=== PATIENT | female | born 1950 | race Caucasian/White ===

== ENCOUNTER 2018-02-11 11:40 | Day surgery (SDC) | payer MEDICARE ==
[2018-02-11] MEDS ORDERED: NS 1,000 ML IV (12:15)
[2018-02-11] MEDS ORDERED: LIDOCAINE 2% INJ 100 MG/5 ML SDV (FOR ANES.) As Ordered (13:25)
[2018-02-11] MEDS ORDERED: PROPOFOL 200 MG/20 ML VIAL As Ordered (13:25)
== END 2018-02-11 13:55 | disposition home or self-care (01) ==
LOC: M OPP 11:40
DX: Z12.11 Encounter for screening for malignant neoplasm of colon (principal); K64.0 First degree hemorrhoids; D12.2 Benign neoplasm of ascending colon; K57.30 Diverticulosis of large intestine without perforation or abscess without bleeding; Z78.0 Asymptomatic menopausal state; Z91.89 Other specified personal risk factors, not elsewhere classified; Z88.0 Allergy status to penicillin; Z98.890 Other specified postprocedural states
CPT/HCPCS: 45380

== ENCOUNTER 2020-11-19 13:07 | Emergency (ER) | payer BC, MEDICARE ==
[~2020-11-19] VITALS: Ht 154.9 cm; Wt 69.7 kg
[~2020-11-19 13:07] MED LIST: FIORICET OR; FLEXERIL PO; IBUP-1114 PO; MULTIVIT PO; OYST500T OR; TRAM50TA2 OR; aleve PO; ocuvite PO
--- OUTSIDE RECORDS SUMMARY | 2020-11-19 13:15 | CCD | Continuity of Care Document ---
Author Author Belia RUVALCABA MD Organization Unknown Address [address] [place] [address], [facility] [address] [place] [address] Phone [phone] Care Team Providers Care Workers' Compensation Claims Supervisor Name Role Phone Tay Lane MD AUTM [phone] Problems Description No Information Available Social History Type Date Description Comments Sex Unknown ETOH Use Occasionally consumes alcohol Tobacco Use Start: Unknown Denies Smoking Allergies, Adverse Reactions, Alerts Active Allergies Reaction Severity Comments Date Penicillin 06/11/2018 Medications Active Medications SIG Qnty Indications Ordering Provide r Date Tylenol With Codeine #3 300-30mg T ablets 1-2 tabs every 4-6 hours as needed pain after surgery(Please DO Not Fill Until 11/15/2020) 30tabs D. Niraj Ruvalcaba MD 021 History Medications No Active Medications Unknown - 11/15/2020 Immunizations Description No Information Available Vital Signs Date Vital Result Comment 10/19/2020 11:37am Body Temperature 96.4 F Height 60 inches 5'0" Weight 148.00 lb BMI (Body Mass Index) 28.9 kg/m2 06/11/2018 9:46am Body Temperature 98.5 F Height 61 inches 5'1" Weight 138.00 lb BMI (Body Mass Index) 26.1 kg/m2 Results Test Acquired Date Facility Test Result H/L Range Note Laboratory test finding 10/31/2020 In House Covid Rapid Testing NEGATIVE Procedures Date Code Description Status 11/15/2020 18793 Arthroplasty Interposition IC/CM JTS Completed 11/15/2020 59218 Transplant Tendon Forearm/Wrist Completed 10/19/2020 65042 X-Ray Finger(S) Two Views Comple Moment.Us Description No Information Available Encounters Type Date Location Provider Dx Diagnosis Office Visit 10/19/2020 10:30a [place] Sheryl Ruvalcaba MD M1 8.11 Unil primary osteoarth of first carpometacarp joint, r hand Assessments Date Code Description Provider 11/10/2020 Z20.828 Contact with and (renee spected) exposure to other viral communicable diseases Lab 11/10/2020 Z01.818 Encounter for other preprocedura l examination Lab 11/09/2020 Z20.828 Contact with and (renee spected) exposure to other viral communicable diseases Sheryl Ruvalcaba MD 11/09/2020 Z20.828 Contact with and (renee spected) exposure to other viral communicable diseases Lab 11/09/2020 Z01.818 Encounter for other preprocedura l examination Sheryl Ruvalcaba MD 11/09/2020 Z01.818 Encounter for other preprocedura l examination Lab 10/31/2020 Z20.828 Contact w and exposure to oth vi ral communicable diseases Sheryl Ruvalcaba MD 10/19/2020 M18.11 Unilateral primary osteoarthriti s of first carpometacarpal j Sheryl Ruvalcaba MD Plan of Treatment Future Appointment(s):* 11/23/2020 1:15 pm - Liza Bullock PA-C at [place] 10/19/2020 - Sheryl Ruvalcaba MD* M18.11 Unilateral primary osteoarthritis of first carpometacarpal j* Follow up:* post op * All * New Medication:* No Active Medications - Functional Status Description No Information Available Mental Status Description No Information Available Referrals Refer to Reason for Referral Status Appt Date Charly Ruvalcaba MD SURGERY PER [employer] WEB NO AU TH REQUIRED FOR RT THUMB SURGERY (40552 AND 49674) TO SURGERY NT Created [facility] [facility], [address] [place] [address] [phone]
--- OUTSIDE RECORDS SUMMARY | 2020-11-19 13:15 | CCD | Continuity of Care Document ---
Author Author Belia RUVALCABA MD Organization Unknown Address [address] [place] [address], [facility] [address] [place] [address] Phone [phone] Care Team Providers Care Filter Worker Name Role Phone Tay Lane MD AUTM [phone] Problems Description No Information Available Social History [...] NEGATIVE Procedures Date Code Description Status 11/15/2020 92293 Arthroplasty Interposition IC/CM JTS Completed 11/15/2020 88195 Transplant Tendon Forearm/Wrist Completed 10/19/2020 42557 X-Ray Finger(S) Two Views Comple [employer] Description No Information Available Encounters Type Date Location Provider Dx Diagnosis Office Visit 10/19/2020 10:30a [place] Sheryl Ruvalcaba MD M1 8.11 Unil primary osteoarth of first carpometacarp joint, r hand Assessments Date Code Description Provider 11/15/2020 M18.11 Unilateral primary o steoarthritis of first carpometacarpal joint, right hand Sheryl Ruvalcaba MD 11/10/2020 Z20.828 Contact with and (renee spected) [...] 1:15 pm - Liza Bullock PA-C at [place] 10/19/2020 - Sheryl Ruvalcaba MD* M18.11 Unilateral primary osteoarthritis of first carpometacarpal j* Follow up:* post op * All * New Medication:* No Active Medications - Functional Status Description No Information Available Mental Status Description No Information Available Referrals Refer to Reason for Referral Status Appt Charly Ruvalcaba MD SURGERY PER [employer] WEB NO AU TH REQUIRED FOR RT THUMB SURGERY (74289 AND 35083) TO SURGERY NT Created [address] [facility], [address] [place] [address] [phone]
--- OUTSIDE RECORDS SUMMARY | 2020-11-19 13:15 | CCD | Continuity of Care Document ---
Author Author Belia RUVALCABA MD Organization Unknown Address [address] [place] [address], [facility] [address] [place] [address] Phone [phone] Care Team Providers Care Account Executive Agribusiness Name Role Phone Tay Lane MD AUTM [phone] Problems Description No Information Available Social History [...] surgery(Please DO Not Fill Until 11/15/2020) 30tabs Sheryl Ruvalcaba MD 021 History Medications No Active [...] Testing NEGATIVE Procedures Date Code Description Status 10/19/2020 61168 X-Ray Finger(S) Two Views Comple [employer] Description No Information Available Encounters Type Date Location Provider Dx Diagnosis Office Visit 10/19/2020 10:30a [place] Ruvalcaba MD M1 8.11 Unil primary osteoarth [...] 1:15 pm - Liza Bullock PA-C at [place] 10/19/2020 - Sheryl Ruvalcaba MD* M18.11 Unilateral primary osteoarthritis of first carpometacarpal j* Follow up:* post op * All * New Medication:* No Active Medications - Functional Status Description No Information Available Mental Status Description No Information Available Referrals Refer to Reason for Referral Status Appt Date Charly Ruvalcaba MD SURGERY PER [facility] NO AU TH REQUIRED FOR RT THUMB SURGERY (84849 AND 31533) TO SURGERY NT Created [address] [facility], [address] [place] [address] [phone]
--- OUTSIDE RECORDS SUMMARY | 2020-11-19 13:15 | CCD | Continuity of Care Document ---
Author Author Belia RUVALCABA MD Organization Unknown Address [address] [place] [address], [facility] [address] [place] [address] Phone [phone] Care Team Providers Care Lockstitch Tunnel Elastic Operator Name Role Phone Tay Lane MD AUTM [phone] Problems Description No Information Available Social History Type Date Description Comments Sex Unknown ETOH Use Occasionally consumes alcohol Tobacco Use Start: Unknown Denies Smoking Allergies, Adverse Reactions, Alerts Active Allergies Reaction Severity Comments Date Penicillin 06/11/2018 Medications Description No Active Medications Immunizations Description No Information Available Vital Signs [...] NEGATIVE Procedures Date Code Description Status 10/19/2020 85008 X-Ray Finger(S) Two Views Comple [employer] Description No Information Available Encounters Description No Information Available Assessments Date Code Description Provider 11/10/2020 Z20.828 [...] 1:15 pm - Liza Bullock PA-C at [place] * 11/15/2020 12:20 pm - Sheryl Ruvalcaba MD at Surgery [facility] 10/19/2020 - Sheryl Ruvalcaba MD* M18.11 Unilateral primary osteoarthritis of first carpometacarpal j* Follow up:* post op * All * New Medication:* No Active Medications - Functional Status Description No Information Available Mental Status Description No Information Available Referrals Refer to Reason for Referral Status Appt Date Charly Ruvalcaba MD SURGERY PER [employer] WEB NO AU TH REQUIRED FOR RT THUMB SURGERY (28639 AND 98942) TO SURGERY NT Created [facility] [facility], [address] [place] [address] [phone]
--- OUTSIDE RECORDS SUMMARY | 2020-11-19 13:15 | CCD | Continuity of Care Document ---
Author Author Belia Skinner Organization Unknown Address [address] [place] [address] [address] [place] [address] Phone [phone] Care Team Providers Care Breakfast And Room Attendant Name Role Phone Tay Lane MD AUTM [phone] Problems Description No Information Available Social History [...] NEGATIVE Procedures Date Code Description Status 10/19/2020 02580 X-Ray Finger(S) Two Views Comple [employer] Description No Information Available Encounters Description No Information Available Assessments Date Code Description Provider 10/31/2020 Z20.828 Contact w and exposure to oth vi ral communicable diseases Sheryl Ruvalcaba MD 10/19/2020 M18.11 Unilateral primary osteoarthriti s of first carpometacarpal j Sheryl Ruvalcaba MD Plan of Treatment Future Appointment(s):* 11/23/2020 1:15 pm - Liza Bullock PA-C at [place] * 11/15/2020 12:20 pm - Sehryl Ruvalcaba MD at Surgery [facility] 10/19/2020 - Sheryl Ruvalcaba MD* M18.11 Unilateral primary osteoarthritis of first carpometacarpal j* Follow up:* post op * All * New Medication:* No Active Medications - Functional Status Description No Information Available Mental Status Description No Information Available Referrals Refer to Reason for Referral Status Appt Date Charly Ruvalcaba MD SURGERY PER [place] WEB NO AU TH REQUIRED FOR RT THUMB SURGERY (10397 AND 51830) TO SURGERY NT Created [facility], [address] [place] [address] [phone]
--- OUTSIDE RECORDS SUMMARY | 2020-11-19 13:15 | CCD | Continuity of Care Document ---
Author Author Belia Skinner Organization Unknown Address [address] [place] [address] [address] [place] [address] Phone [phone] Care Team Providers Care Manager Cash Name Role Phone Tay Lane MD AUT [phone] Problems Description No Information Available Social History [...] NEGATIVE Procedures Date Code Description Status 10/19/2020 31095 X-Ray Finger(S) Two Views Comple [employer] Description No Information Available Encounters Description [...] 1:15 pm - Liza Bullock PA-C at [place] * 11/15/2020 12:20 pm - Sheryl Ruvalcaba MD at Surgery [facility] 10/19/2020 - Sheryl Ruvalcaba MD* M18.11 Unilateral primary osteoarthritis of first carpometacarpal j* Follow up:* post op * All * New Medication:* No Active Medications - Functional Status Description No Information Available Mental Status Description No Information Available Referrals Refer to Reason for Referral Status Appt Date Charly Ruvalcaba MD SURGERY PER [facility] WEB NO AU TH REQUIRED FOR RT THUMB SURGERY (49327 AND 86740) TO SURGERY NT Created [address] [facility], [address] [place] [address] [phone]
--- OUTSIDE RECORDS SUMMARY | 2020-11-19 13:16 | CCD ---
Author Author [facility] Organization [facility] Address Unknown Phone Unavailable Care Team Providers Care Biztalk Software Developer Name Role Phone Eunice Pineda Unavailable PROBLEMS Type Condition ICD9-CM Code [id number] Code Onset Dates Condition S tatus SNOMED Code Notes Problem Seborrheic psoriasis L40.8 Active 60935635 ALLERGIES Allergen (clinical drug ingredient) Drug/Non Drug Allergy do cumented on EMR Reaction Allergy Type Onset Date Status Penicillin (For Allergies Use Only) Hives Drug Allerg y Active ENCOUNTERS from 1950 to 2020-09-20 Encounter Location Date Provider Diagnosis [facility] [address] [place] [address] Sep, Eunice Pineda Seborrheic psoriasis L40.8 IMMUNIZATIONS No Information SOCIAL HISTORY Sex Assigned At : Social History Observation Description Sex Assigned At Unknown REASON FOR REFERRAL No Information VITAL SIGNS No information MEDICATIONS Medication SIG (Take, Route, Frequency, Duration) Notes Start Da te End Date Status Estrace 0.1 MG/GM 0.5 gm intravaginally 1-2xwk prn Not-Taking CUSTOM DO NOT USE Tramadol 50 mg 1 tab(s) p.o. as needed for pain Not-Taking Tacrolimus 0.1 % 1 application Externally Twi ce a day to EYELID rash as instructed for 30 days Sep, Active Calcium 600 + D 600-400 MG-UNIT 1 tablet Orally bid Oct Active Alendronate 70 70mg 1 tab(s) orally once weekly for 30 day(s) Nov, Not-Taking Aleve 220 MG 1 tablet p.o. as needed Not-Taking PROCEDURES No Information RESULTS No Results REASON FOR VISIT NEEDS SCRIPT MEDICAL (GENERAL) HISTORY Type Description Date Medical History osteoporosis Medical History hx spinal injury/chronic back pain Medical History environmental allergies Medical History vaginal atrophy Medical History osteoarthritis Surgical History back surgery Surgical History tubal ligation Surgical History knee surgery jimmie Surgical History deviated septum repair Goals Section No Information Health Concerns No Information MEDICAL EQUIPMENT No Information MENTAL STATUS No Information FUNCTIONAL STATUS No Information ASSESSMENTS Encounter Date Diagnosis Assessment Notes Treatment Notes Treatm ent Clinical Notes Sep, Seborrheic psoriasis (ICD-10 - L40.8) PLAN OF TREATMENT Medication Medication Name Sig Start Date Stop Date Tacrolimus 0.1 % 1 application Externally Twi ce a day to EYELID rash as instructed for 30 days Sep, Next Appt Details Provider Name:Eunice Pineda, 11:00:00 AM, [address] [facility] [place], [address] [facility], [place], [address], Insurance Providers Payer Name Payer Address Payer Phone Insured Name Patient Relati onship to Insured Coverage Start Date Coverage End Date MEDICARE COMPLETE [employer] [address] [address] [facility] [phone] SANJAY KAY self
--- OUTSIDE RECORDS SUMMARY | 2020-11-19 13:16 | CCD ---
Author Author [facility] Organization [facility] Address Unknown Phone Unavailable Care Team Providers Care Fireworks Assembly Supervisor Name Role Phone Eunice Pineda Unavailable PROBLEMS Type Condition ICD9-CM Code [id number] Code Onset Dates Condition S tatus SNOMED Code Notes Problem Seborrheic psoriasis L40.8 Active [id number] ALLERGIES Allergen (clinical drug ingredient) Drug/Non Drug Allergy do cumented on EMR Reaction Allergy Type Onset Date Status Penicillin (For Allergies Use Only) Hives Drug Allerg y Active ENCOUNTERS from 1950 to 2020-10-04 Encounter Location Date Provider Diagnosis [facility] Derm[facility]ology [address] [place] [address] Sep, Eunice Pineda IMMUNIZATIONS No Information SOCIAL HISTORY Sex Assigned [...] Information RESULTS No Results REASON FOR VISIT Reaction to RX MEDICAL (GENERAL) HISTORY Type Description Date Medical [...] No Information FUNCTIONAL STATUS No Information ASSESSMENTS No Information PLAN OF TREATMENT Medication Medication Name Sig Start Date Stop Date Tacrolimus 0.1 % 1 application Externally Twi ce a day to EYELID rash as instructed for 30 days Sep, Next Appt Details Provider Name:Eunice Pineda, 11:00:00 AM, [address] [place] [address], [address] [facility], [place], [address], Insurance Providers Payer Name Payer Address Payer Phone Insured Name Patient Relati onship to Insured Coverage Start Date Coverage End Date MEDICARE COMPLETE [employer] [address] [address] [facility] [id number] SANJAY KAY self
--- OUTSIDE RECORDS SUMMARY | 2020-11-19 13:16 | CCD ---
Author Author [facility] Organization [facility] Address Unknown Phone Unavailable Care Team Providers Care Cdl B Driver Name Role Phone Eunice Pineda Unavailable PROBLEMS Type Condition ICD9-CM Code [id number] Code Onset Dates Condition S tatus SNOMED Code Notes Problem Seborrheic psoriasis L40.8 Active 22263131 ALLERGIES Allergen (clinical drug ingredient) Drug/Non Drug Allergy do cumented on EMR Reaction Allergy Type Onset Date Status Penicillin (For Allergies Use Only) Hives Drug Allerg y Active ENCOUNTERS from 1950 to 2020-09-22 Encounter Location Date Provider Diagnosis [facility] D[facility] [address] [place] [address] Sep, Eunice Miriam Seborrheic psoriasis L40.8 a nd Seborrheic keratoses L82.1 IMMUNIZATIONS No Information SOCIAL HISTORY Sex Assigned At : Social History Observation Description Sex Assigned At Unknown REASON FOR REFERRAL No Information VITAL SIGNS Weight 150 lbs Sep, Height 61 in Sep, BMI 28.34 kg/m2 Sep, Blood pressure systolic 132 mm Hg Sep, Blood pressure diastolic 86 mm Hg Sep, MEDICATIONS Medication SIG (Take, Route, Frequency, Duration) [...] Information RESULTS No Results REASON FOR VISIT Scaly spot above right eye MEDICAL (GENERAL) HISTORY Type Description Date Medical [...] Notes Sep, Seborrheic psoriasis (ICD-10 - L40.8) Sep, Seborrheic keratoses (ICD-10 - L82.1) Benign Lesion Counseling. The patient was extensively counseled regarding the benign nature of the lesion but that skin cancer may arise in this area just as it would anywhere on their skin. For that reason, return to clinic was recommended for any acute changes, itching, burning, or bleeding. The patient was educated that benign lesions are not a covered insurance benefit and treatment would be elective and cosmetic. They expressed understanding. PLAN OF TREATMENT Medication Medication Name Sig Start Date Stop Date Tacrolimus 0.1 % 1 application Externally Twi ce a day to EYELID rash as instructed for 30 days Sep, Treatment Notes Assessment Notes Clinical Notes Seborrheic keratoses Benign Lesion Couns eling. The patient was extensively counseled regarding the benign nature of the lesion but that skin cancer may arise in this area just as it would anywhere on their skin. For that reason, return to clinic was recommended for any acute changes, itching, burning, or bleeding. The patient was educated that benign lesions are not a covered insurance benefit and treatment would be elective and cosmetic. They expressed understanding. Next Appt Details 3-4 weeks Reason:sebopsoriasis F/U Provider Name:Eunice Pineda, 11:00:00 AM, [address] [facility], [address] [place] [address], [place], [address], Follow Up:3-4 weekssebopsoriasis F/U Insurance Providers Payer Name Payer Address Payer Phone Insured Name Patient Relati onship to Insured Coverage Start Date Coverage End Date MEDICARE COMPLETE [facility] [address] [address] [facility] [phone] SANJAY KAY self
--- OUTSIDE RECORDS SUMMARY | 2020-11-19 13:16 | CCD ---
Author Author [facility] Organization [facility] Address Unknown Phone Unavailable Care Team Providers Care Order Taker Name Role Phone Fred Lane MD Unavailable Unavailable Fred Lane MD Unavailable Unavailable Fred Lane MD Unavailable Unavailable Fred Lane MD Unavailable Unavailable Fred Lane MD Unavailable Unavailable Fred Lane MD Unavailable Unavailable Fred Lane MD Unavailable Unavailable Fred Lane MD Unavailable Unavailable Fred Lane MD Unavailable Unavailable Fred Lane MD Unavailable Unavailable Fred Lane MD Unavailable Unavailable Fred Lane MD Unavailable Unavailable Fred Lane MD Unavailable Unavailable Fred Lane MD Unavailable Unavailable Fred Lane MD Unavailable Unavailable Fred Lane MD Unavailable Unavailable Fred Lane MD Unavailable Unavailable Fred Lane MD Unavailable Unavailable Fred Lane MD Unavailable Unavailable Fred Lane MD Unavailable Unavailable Fred Lane MD Unavailable Unavailable Fred Lane MD Unavailable Unavailable Fred Lane MD Unavailable Unavailable Fred Lane MD Unavailable Unavailable Fred Lane MD Unavailable Unavailable Fred Lane MD Unavailable Unavailable Fred Lane MD Unavailable Unavailable Fred Lane MD Unavailable Unavailable Fred Lane MD Unavailable Unavailable Fred Lane MD Unavailable Unavailable Fred Lane MD Unavailable Unavailable Fred Lane MD Unavailable Unavailable ArianaFred MD Unavailable Unavailable WilsonFred MD Unavailable Unavailable WilsonFred MD Unavailable Unavailable ArianaFred MD Unavailable Unavailable ArianaFred MD Unavailable Unavailable WilsonFred MD Unavailable Unavailable WilsonFred MD Unavailable Unavailable ArianaFred MD Unavailable Unavailable ArianaFred MD Unavailable Unavailable ArianaFred MD Unavailable Unavailable WilsonFred MD Unavailable Unavailable WilsonFred MD Unavailable Unavailable ArianaFred MD Unavailable Unavailable WilsonFred MD Unavailable Unavailable ArianaFred MD Unavailable Unavailable WilsonFred MD Unavailable Unavailable ArianaFred MD Unavailable Unavailable WilsonFred MD Unavailable Unavailable ArianaFred MD Unavailable Unavailable ArianaFred MD Unavailable Unavailable ArianaFred MD Unavailable Unavailable WilsonFred MD Unavailable Unavailable ArianaFred MD Unavailable Unavailable ArianaFred MD Unavailable Unavailable WilsonFred MD Unavailable Unavailable ArianaFred MD Unavailable Unavailable ArianaFred MD Unavailable Unavailable ArianaFred MD Unavailable Unavailable WilsonFred MD Unavailable Unavailable WilsonFred MD Unavailable Unavailable WilsonFred MD Unavailable Unavailable ArianaFred MD Unavailable Unavailable ArianaFred MD Unavailable Unavailable WilsonFred MD Unavailable Unavailable ArianaFred carl MD Unavailable Unavailable WilsonFred carl MD Unavailable Unavailable WilsonFred carl MD Unavailable Unavailable ArianaFred carl MD Unavailable Unavailable ArianaFred carl MD Unavailable Unavailable WilsonFred MD Unavailable Unavailable ArianaFred MD Unavailable Unavailable WilsonFred carl MD Unavailable Unavailable ArianaFred carl MD Unavailable Unavailable WilsonFred carl MD Unavailable Unavailable WilsonFred MD Unavailable Unavailable WilsonFred MD Unavailable Unavailable ArianaFred MD Unavailable Unavailable WilsonFred MD Unavailable Unavailable ArianaFred MD Unavailable Unavailable WilsonFred MD Unavailable Unavailable WilsonFred carl MD Unavailable Unavailable ArianaFred MD Unavailable Unavailable WilsonFred MD Unavailable Unavailable WilsonFred MD Unavailable Unavailable Charly Ruvalcaba MD Unavailable Unavailable Vaneenenaam, Charly Healy MD Unavailable Unavailable Vaneenenaam, Charly Healy MD Unavailable Unavailable Vaneenenaam, Charly Healy MD Unavailable Unavailable Vaneenenaam, Charly Healy MD Unavailable Unavailable Vaneenenaam, Charly Healy MD Unavailable Unavailable Vaneenenaam, Charly Healy MD Unavailable Unavailable Vaneenenaam, Charly Healy MD Unavailable Unavailable Vaneenenaam, Charly Healy MD Unavailable Unavailable Vaneenenaam, Charly Healy MD Unavailable Unavailable Vaneenenaam, Charly Healy MD Unavailable Unavailable Vaneenenaam, Charly Healy MD Unavailable Unavailable Vaneenenaam, Charly Healy MD Unavailable Unavailable Vaneenenaam, Charly Healy MD Unavailable Unavailable Vaneenenaam, Charly Healy MD Unavailable Unavailable Vaneenenaam, Charly Healy MD Unavailable Unavailable Vaneenenaam, Charly Healy MD Unavailable Unavailable Vaneenenaam, Charly Healy MD Unavailable Unavailable Vaneenenaam, Charly Healy MD Unavailable Unavailable Vaneenenaam, Charly Healy MD Unavailable Unavailable Vaneenenaam, Charly Healy MD Unavailable Unavailable Vaneenenaam, Charly Healy MD Unavailable Unavailable Vaneenenaam, Charly Healy MD Unavailable Unavailable Vaneenenaam, Charly Healy MD Unavailable Unavailable Vaneenenaam, Charly Healy MD Unavailable Unavailable Vaneenenaam, Charly Healy MD Unavailable Unavailable Vaneenenaam, Charly Healy MD Unavailable Unavailable Vaneenenaam, Charly Healy MD Unavailable Unavailable Vaneenenaam, Charly Healy MD Unavailable Unavailable Vaneenenaam, Charly Healy MD Unavailable Unavailable Vaneenenaam, Charly Healy MD Unavailable Unavailable Vaneenenaam, Charly Healy MD Unavailable Unavailable Vaneenenaam, Charly Healy MD Unavailable Unavailable Vaneenenaam, Charly Healy MD Unavailable Unavailable Vaneenenaam, Charly Healy MD Unavailable Unavailable Vaneenenaam, Charly Healy MD Unavailable Unavailable Vaneenenaam, Charly Healy MD Unavailable Unavailable Vaneenenaam, Charly Healy MD Unavailable Unavailable Vaneenenaam, Charly Healy MD Unavailable Unavailable Vaneenenaam, Charly Healy MD Unavailable Unavailable Vaneenenaam, Charly Healy MD Unavailable Unavailable Vaneenenaam, Charly Healy MD Unavailable Unavailable Re-disclosure Warning The records that you are about to access may contain information from federally-assisted alcohol or drug abuse programs. If such information is present, then the following federally mandated warning applies: This information has been disclosed to you from records protected by federal confidentiality rules (42 CFR part 2). The federal rules prohibit you from making any further disclosure of this information unless further disclosure is expressly permitted by the written consent of the person to whom it pertains or as otherwise permitted by 42 CFR part 2. A general authorization for the release of medical or other information is NOT sufficient for this purpose. The Federal rules restrict any use of the information to criminally investigate or prosecute any alcohol or drug abuse patient.The records that you are about to access may contain highly sensitive health information, the redisclosure of which is protected by Article 27-F of the [facility] Public Health law. If you continue you may have access to information: Regarding HIV / AIDS; Provided by facilities licensed or operated by the [facility] Office of Mental Health; or Provided by the [facility] Office for People With Developmental Disabilities. If such information is present, then the following [facility] mandated warning applies: This information has been disclosed to you from confidential records which are protected by state law. State law prohibits you from making any further disclosure of this information without the specific written consent of the person to whom it pertains, or as otherwise permitted by law. Any unauthorized further disclosure in violation of state law may result in a fine or group home sentence or both. A general authorization for the release of medical or other information is NOT sufficient authorization for further disc losure. Family History Family Member Name Family Member Gender Family Member Status Date o f Status Description Data Source(s) Unknown Male Problem [facility] ([facility]) Unknown Male Problem MEDENT ([facility]) Unknown Female Problem MEDENT ([facility]) Encounters Encounter Providers Location Date Indications Data Source(s ) Office Visit Attender: Tay Feng 0 11/02/2020 08:40:00 AM EST MEDENT ([facility] ) Office Visit Attender: Charly Ruvalcaba MD Physical Therap y 10/19/2020 09:30:00 AM EST MED[facility] ([facility]) Outpatient [address] [facility] [place] [address] 10/16/2020 12:00:00 AM EST eCW1 ([facility]) Unknown [address] [facility] [place] [address] 10/04/2020 12:00:00 AM EST eCW1 ([facility]) Unknown [address] [facility] [place] [address] 09/20/2020 12:00:00 AM EST eCW1 ([facility]) Unknown [address] [facility] [place] [address] 09/19/2020 12:00:00 AM EST eCW1 ([facility]) Outpatient [address] [facility] [place] [address] 09/18/2020 12:00:00 AM EST eCW1 ([facility]) Outpatient Attender: Tay Feng 1 11/13/2019 01:00:00 PM EST MEDENT ([facility] ) Immunizations Vaccine Date Status Description Data Source(s) COVID-19 VACCINE, MRNA-1273, LNP-S (MODERNA)/PF 11/10/2020 1 2:00:00 AM EST completed [facility] Shingrix Zoster Vaccine (HZV), Recombinant, Subunit, A djuvanted 09/16/2020 07:38:00 AM EST completed [facility] ([place] [facility]) VARICELLA-ZOSTER VIRUS GLYCOPROTEIN E,REC/AS01B ADJUVA NT/PF 09/16/2020 12:00:00 AM EST completed [facility] This CVX code allows reporting of a vacc ination when formulation is unknown (for example, when recording a Influenza vaccination when noted on a vaccination card) 07/06/2020 10:18:00 AM EDT completed MEDEN T ([facility]) INFLUENZA VACCINE QUADRIVALENT 2019- (65 YR UP)/MF59 C.1/PF 07/06/2020 12:00:00 AM EDT completed [facility] Shingrix Zoster Vaccine (HZV), Recombinant, Subunit, A djuvanted 06/23/2020 03:58:00 PM EDT completed [facility] ([place] [facility]) VARICELLA-ZOSTER VIRUS GLYCOPROTEIN E,REC/AS01B ADJUVA NT/PF 06/23/2020 12:00:00 AM EDT completed [facility] Medications Medication Brand Name Start Date Product Form Dose Route Admi nistrative Instructions Pharmacy Instructions Status Indications Reaction Description Data Source(s) Acetaminophen 300 MG / Codeine Phosphate 30 MG Oral Tablet [Tylenol with Codeine] Tylenol With Codeine #3 11/15/2020 12:00:00 AM EST active [facility] ([facility]) 300-30 mg 11/14/2020 12:00:00 AM EST tablet 30 TAKE ONE TO TWO TABLETS BY MOUTH EVERY 4 TO 6 HOURS NEEDED FOR PAIN AFTER SURGERY MAXIMUM DAILY DOSE = 8 TABLETS TAKE ONE TO TWO TABLETS BY MOUTH EVERY 4 TO 6 HOURS NEEDED FOR PAIN AFTER SURGERY MAXIMUM DAILY DOSE = 8 TABLETS SOLD: 11/15/2020 [facility] No Active Medications 10/19/2020 12:00:00 AM EST completed [facility] ([facility]) 0.05 % 10/17/2020 12:00:00 AM EST ointment 15 APPLY TWICE A DAY FOR UP TO 1 WEEK ONLY NEEDED FOR EYEBROW RASH APPLY TWICE A DAY FOR UP TO 1 WEEK ONLY NEEDED FOR EYEBROW RASH SOLD: 10/17/2020 [facility] alclometasone dipropionate 0.0005 MG/MG Topical Ointment Alclometasone Dipropionate 0.05 % Alclometasone Dipropionate 0.05 % 10/16/2020 12:00:00 AM EST 1.0 {application} active Alclom etasone Dipropionate 0.05 % [facility] 0.1 % 09/21/2020 12:00:00 AM EST ointment 30 APPLY 1 APPLICATION TWICE A DAY TO EYELID RASH INSTRUCTED APPLY 1 APPLICATION TWICE A DAY TO EYELI D RASH INSTRUCTED SOLD: 09/21/2020 [facility] Tacrolimus 0.001 MG/MG Topical Ointment Tacrolimus 0.1 % Tac rolimus 0.1 % 09/18/2020 12:00:00 AM EST 1.0 {application} act greta Tacrolimus 0.1 % [facility]CW[facility] Tacrolimus 0.001 MG/MG Topical Ointment Tacrolimus 0.1 % Tac rolimus 0.1 % 09/18/2020 12:00:00 AM EST 1.0 {application} act greta Tacrolimus 0.1 % [facility]CW1 [facility]) Tacrolimus 0.001 MG/MG Topical Ointment Tacrolimus 0.1 % Tac rolimus 0.1 % 09/18/2020 12:00:00 AM EST 1.0 {application} act greta Tacrolimus 0.1 % [facility]CW1 [facility]) Tacrolimus 0.001 MG/MG Topical Ointment Tacrolimus 0.1 % Tac rolimus 0.1 % 09/18/2020 12:00:00 AM EST 1.0 {application} act greta Tacrolimus 0.1 % [facility]CW[facility] 10 mg 09/09/2019 12:00:00 AM EST tablet 60 TAKE ONE TABLET BY MOUTH TWICE A DAY MAXIMUM DAILY DOSE = 2 TABLETS TAKE ONE TABLET BY MOUTH TWICE A DAY MAX IMUM DAILY DOSE = 2 TABLETS SOLD: 10/08/2019 [facility] Insurance Providers Payer name Policy type / Coverage type Policy ID Covered green party ID Covered green party's relationship to [place] Policy [place] Plan Information MEDICARE COMPLETE [id number] SP [id number] [id number] SP [id number] [place] PPO 302/307 [id number] SP [id number] BS [place] Trad/MX Medigap Part B [id number] Self [id number] [facility] [id number] Self [id number] [place] Trad/MX Medigap Part B [id number] Self [id number] BS [place] Trad/[place] Medigap Part B [id number] Self [id number] [place] Trad/[place] Medigap Part B [id number] Family Depe ndent [id number] BS [place] Trad/MX Medigap Part B [id number] Self [id number] BS [place] Medigap Part B [id number] Self [id number] [place] [employer] Commercial [id number] Self [id number] BS [place] Trad/MX Medigap Part B [id number] Self [id number] [facility] [id number] Self [id number] [facility]/Medicare Commercial [id number] Self [id number] BS [place] Trad/MX Commercial [id number] Self [id number] MEDICARE COMPLETE-[facility] O [id number] S [id number] [facility] [id number] S [id number] BS [place] Trad/MX Commercial [id number] Self [id number] [facility] Medicare Kimberlee Commercial [id number] Self [id number] [facility] G [id number] Self [id number] [facility] MEDICARE -O/P [id number] 18 [id number] [facility] Medicare Kimberlee Commercial [id number] Self [id number] BS Jos Trad/MX Commercial 802 Self 802 BS [place] Trad/MX Commercial 802 Self 802 [place] Trad/MX Commercial 802 Self 802 BS [place] Trad/MX Commercial 802 Family Dependent 802 BS [place] Trad/MX Commercial 802 Self 802 [facility] Medicare Complete F [id number] SELF [id number] Medicare Complete [facility] F [id number] SELF [id number] [place] BCBS B [id number] S [id number] [place] PPO 302/307 [id number] SP [id number] BCBS [place] PPO 302/307 [id number] SP [id number] [employer] BCBS P [id number] S [id number] [id number] BCBS EMPIRE DANG DIV [id number] SP [id number] BC/BS OF [place] P [id number] S [id number] [id number] BLUE CROSS CNY 1 [id number] [id number] SELF PAY 5 UNAVAILABLE 1 UNAVAILA BLE [id number] Problems, Conditions, and Diagnoses Code Display Name Description Problem Type Effective Dates Data Source(s) L40.8 [id number] Seborrheic psoriasis Problem 09/18/2020 12:0 0:00 AM EST [facility] Surgeries/Procedures Procedure Description Date Indications Data Source(s) Transplant Tendon Forearm/Wrist 11/15/2020 12:00:00 AM EST [facility] ([facility] Arthroplasty Interposition IC/CM JTS 11/15/2020 12:00: 00 AM EST [facility] ([facility] ) ECG ROUTINE ECG W/LEAST 12 LDS W/I&R 11/02/2020 12:00: 00 AM EST [facility] ([facility]) RADEX FINGR MINIMUM 2 VIEWS 10/19/2020 12:00:00 AM EST [facility] ([facility]) ECG ROUTINE ECG W/LEAST 12 LDS W/I&R 09/12/2020 12:00: 00 AM EST MED[facility] ([facility]) Results ID Date Data Source [id number] 10/31/2020 02:32:00 PM EST [facility] ([facility]) Name Value Range Interpretation Code Description Data Paloma rce(s) Supporting Document(s) Covid Rapid Testing Laboratory test result [facility] ([facility]) ID Date Data Source [id number] 10/31/2020 12:00:00 AM EST [facility] Name Value Range Interpretation Code Description Data Paloma rce(s) Supporting Document(s) Covid Rapid Testing Negative [facility] This lab was ordered by [place] and re ported by [facility]. ID Date Data Source [id number] 09/12/2020 08:55:00 AM EST [facility] ([facility]) Name Value Range Interpretation Code Description Data Paloma rce(s) Supporting Document(s) Calcidiol [Mass/volume] in Serum or Plasma 39.0 24.0-80.0 MED[facility] ([facility]) This test was performed using FastPack I P Vitamin D immunoassay kit. Values obtained with different assay methods should not be used interchangeably. ID Date Data Source [id number] 09/12/2020 08:55:00 AM EST [facility] ([facility]) Name Value Range Interpretation Code Description Data Paloma rce(s) Supporting Document(s) Cholesterol in HDL [Mass/volume] in Serum or Plasma 74 mg/dL 35-60 [facility] ([facility]) Triglyceride [Mass/volume] in Serum or Plasma 71 mg/dL 30-150 [facility] ([facility]) Cholesterol [Mass/volume] in Serum or Plasma 207 mg/dL 131-200 [facility] ([facility]) Cholesterol in LDL [Mass/volume] in Serum or Plasma by calcu lation 119 CALC 50-159 [facility] ([facility]) ID Date Data Source [id number] 09/12/2020 08:55:00 AM EST [facility] ([facility]) Name Value Range Interpretation Code Description Data Paloma rce(s) Supporting Document(s) Glucose [Mass/volume] in Serum or Plasma 97 mg/dL 74-99 [facility] ([facility]) 100-125 mg/dL PRE-DIABETES/FASTING >126 mg/dL DIABETES/FASTING Creatinine 0.9 mg/dL 0.6-1.3 [facility] Urea nitrogen [Mass/volume] in Serum or Plasma 25 mg/dL 7-18 [facility] ([facility]) Potassium [Moles/volume] in Serum or Plasma 4.6 meq/L 3.5-5.1 [facility] ([facility]) Sodium [Moles/volume] in Serum or Plasma 144 meq/L 136-145 [facility] ([facility]) Chloride [Moles/volume] in Serum or Plasma 106 meq/L 98-107 [facility] ([facility]) Calcium [Mass/volume] in Serum or Plasma 9.0 mg/dL 8.5-10.1 [facility] ([facility]) Carbon dioxide, total [Moles/volume] in Serum or Plasma 29 meq/L 21 -32 [facility] ([facility]) Alkaline phosphatase isoenzyme [Units/volume] in Serum or Pl asma 60 mg/dL 46-116 [facility] ([facility]) Total Bilirubin 0.5 mg/dL 0.2-1.0 MED[facility] ([facility]) Alanine aminotransferase [Enzymatic activity/volume] in Seru m or Plasma 23 U/L 12-78 [facility] ([facility]) Aspartate aminotransferase [Enzymatic activity/volume] in Serum or Plasma 19 U/L 15-37 [facility] ([facility] ) Albumin [Mass/volume] in Serum or Plasma 4.0 g/dL 3.4-5.0 [facility] ([facility]) A/G Ratio 1.54 CALC 1.00-1.90 [facility] ([facility]) Proteinase 3 Ab [Units/volume] in Serum 6.6 g/dL 6.4-8.2 [facility] ([facility]) Glomerular filtration rate/1.73 sq M pre dicted among non-blacks [Volume Rate/Area] in Serum or Plasma by Creatinine-based formula (MDRD) Laboratory test result [facility] ([facility] ) Glomerular filtration rate/1.73 sq M pre dicted among blacks [Volume Rate/Area] in Serum or Plasma by Creatinine-based formula (MDRD) Laboratory test result [facility] ([facility]) <content>CHRONIC KIDNEY DISEASE STAGING PER NKF</content>
<content></content>
<content>STAGE I & II GFR >= 60 NORMAL TO MILDLY DECREASED</content>
<content>STAGE III GFR 30-59 MODERATELY DECREASED</content>
<content>STAGE IV GFR 15-29 SEVERELY DECREASED</content>
<content>STAGE V GFR <15 VERY LITTLE GFR LEFT</content>
<content>ESRD GFR <15 ON MOLD CLOSER HELPER</content>
<content></content> ID Date Data Source [id number] 09/12/2020 08:55:00 AM [facility] Name Value Range Interpretation Code Description Data Paloma rce(s) Supporting Document(s) Leukocytes [#/volume] in Blood by Automated count 6.8 x10*3/UL 4.1-10 .9 [facility] Erythrocytes [#/volume] in Blood by Automated count 4.85 x10*6/UL 4.2 0-6.30 [facility] Hemoglobin [Mass/volume] in Blood 15.0 g/dL 12.0-18.0 [facility] ([facility]) MCH 31.1 pg 26.0-32.0 [facility] ([place] [facility]) MCV 86.5 fL 80.0-97.0 MED[facility] ([facility]) Hematocrit [Volume Fraction] of Blood by Automated count 41.9 % 3 7.0-51.0 [facility] ([facility]) Platelets [#/volume] in Blood by Automated count 273 x10*3/UL 140-440 [facility] Erythrocyte distribution width [Ratio] by Automated count 12.1 % 11.6-13.7 [facility] ([facility]) MCHC 35.9 g/dL 31.0-38.0 [facility]) MPV 7.7 FL 7.8-11.0 [facility] ([facility]) Lymph % 16.8 % 10.0-58.5 [facility] ([facility]) Neut % 79.5 % 37.0-92.0 [facility] ([facility]) Mid % 3.7 % 1.7-9.3 [facility] ([facility]) Lymph # 1.1 x10*3/UL 0.6-4.1 [facility] ([facility]) Neut # 5.4 x10*3/UL 2.0-7.8 [facility] ([facility]) Mid # 0.3 x10*3/UL 0.1-0.6 [facility] ([facility]) Procedure Vital Signs ID Date Data Source UNK Name Value Range Interpretation Code Description Data Source(s) Body mass index (BMI) [Ratio] 28.9 kg/m2 28.9 k g/m2 MED[facility] ([facility]) Body weight 153.00 [lb_av] 153.00 [lb_av] MEDEN T ([facility]) Body height 61 [in_i] 61 [in_i] [facility] ([facility]) 5'1" [facility] Diastolic blood pressure 76 mm[Hg] 76 mm[Hg] MED[facility] ([facility]) Systolic blood pressure 134 mm[Hg] 134 mm[Hg] M EDENT ([facility]) Body mass index (BMI) [Ratio] 28.9 kg/m2 28.9 k g/m2 [facility] ([facility] Body weight 148.00 [lb_av] 148.00 [lb_av] MEDEN T ([facility]) Body height 60 [in_i] 60 [in_i] [facility] ([facility] 5'0" Body temperature 96.4 [degF] 96.4 [degF] [facility] ([facility] Diastolic blood pressure 86 mm[Hg] 86 mm[Hg] [facility] Systolic blood pressure 126 mm[Hg] 126 mm[Hg] e CW1 [facility] Body mass index (BMI) [Ratio] 28.91 kg/m2 28.91 kg/m2 W1 ([facility]) Body height 61 [in_i] 61 [in_i] eCW1 ([facility]) Body weight 153 [lb_av] 153 [lb_av] eCW1 ([facility]) Diastolic blood pressure 86 mm[Hg] 86 mm[Hg] eCW1 [facility] Systolic blood pressure 132 mm[Hg] 132 mm[Hg] e CW1 ([facility]) Body mass index (BMI) [Ratio] 28.34 kg/m2 28.34 kg/m2 W1 ([facility]) Body height 61 [in_i] 61 [in_i] eCW1 ([facility]) Body weight 150 [lb_av] 150 [lb_av] eCW1 ([facility]) Body mass index (BMI) [Ratio] 28.5 kg/m2 28.5 k g/m2 MED[facility] ([facility]) Body weight 151.00 [lb_av] 151.00 [lb_av] MEDEN T ([facility]) Body height 61 [in_i] 61 [in_i] MED[facility] ([facility]) 5'1" Heart rate 72 /min 72 /min MED[facility] ([facility]) Diastolic blood pressure 76 mm[Hg] 76 mm[Hg] MEDENT ([facility]) Systolic blood pressure 126 mm[Hg] 126 mm[Hg] M EDENT ([facility]) Patient Treatment Plan of Care Planned Activity Planned Date Details Description Data Source (s) alclometasone dipropionate 0.0005 MG/MG Topical Ointme nt 10/16/2020 12:00:00 AM EST eCW1 (Formerly [facility]) Tacrolimus 0.001 MG/MG Topical Ointment 09/18/2020 12:00:00 AM EST [facility] Tacrolimus 0.001 MG/MG Topical Ointment 09/18/2020 12:00:00 AM EST eCW1 ([facility]) Tacrolimus 0.001 MG/MG Topical Ointment 09/18/2020 12:00:00 AM EST eCW1 ([facility]) Tacrolimus 0.001 MG/MG Topical Ointment 09/18/2020 12:00:00 AM EST eCW1 ([facility])
--- OUTSIDE RECORDS SUMMARY | 2020-11-19 13:16 | CCD ---
Author Author [facility] Organization [facility] ems Address Unknown Phone Unavailable Care Team Providers Care Able Bodied Seaman Name Role Phone Eunice Pineda Unavailable PROBLEMS Type Condition ICD9-CM Code [id number] Code Onset Dates Condition S tatus SNOMED Code Notes Problem Seborrheic psoriasis L40.8 Active [id number] ALLERGIES Allergen (clinical drug ingredient) Drug/Non Drug Allergy do cumented on EMR Reaction Allergy Type Onset Date Status Tacrolimus Rash Drug Allergy Active Penicillin (For Allergies Use Only) Hives Drug Allerg y Active ENCOUNTERS from 1950 to 2020-10-20 Encounter Location Date Provider Diagnosis [facility] Dermatology [address] [place] [address] Oct, Eunice Pineda Seborrheic psoriasis L40.8 ; Seborrheic keratoses L82.1 and Seborrheic keratoses, inflamed L82.0 IMMUNIZATIONS No Information SOCIAL HISTORY Sex Assigned At : Social History Observation Description Sex Assigned At Unknown REASON FOR REFERRAL No Information VITAL SIGNS Weight 153 lbs Oct, Height 61 in Oct, BMI 28.91 kg/m2 Oct, Blood pressure systolic 126 mm Hg Oct, Blood pressure diastolic 86 mm Hg Oct, MEDICATIONS Medication SIG (Take, Route, Frequency, Duration) Notes Start Da te End Date Status Aleve 220 MG 1 tablet p.o. as needed Not-Taking Alendronate 70 70mg 1 tab(s) orally once weekly for 30 day(s) Nov, Not-Taking Estrace 0.1 MG/GM 0.5 gm intravaginally 1-2xwk prn Not-Taking Alclometasone Dipropionate 0.05 % 1 application Leather Grader ally Twice a day for up to ONE WEEK ONLY NEEDED for eyebrow rash for 10 days Oct, Active CUSTOM DO NOT USE Tramadol 50 mg 1 tab(s) p.o. as needed for pain Not-Taking Calcium 600 + D 600-400 MG-UNIT 1 tablet Orally bid Oct Active PROCEDURES No Information RESULTS No Results REASON FOR VISIT Recheck MEDICAL (GENERAL) HISTORY Type Description Date Medical [...] Notes Treatment Notes Treatm ent Clinical Notes Oct, Seborrheic psoriasis (ICD-10 - L40.8) Oct, Seborrheic keratoses (ICD-10 - L82.1) Benign Lesion [...] be elective and cosmetic. They expressed understanding. Oct, Seborrheic keratoses, inflamed (ICD-10 - L82.0) Cryotherapy x [TWO ] number of sites. [place] protocol was followed in compliance with [facility] standards. Patient was counseled regarding the indication for treatment (precancerous state for actinic keratosis or cosmetic reasons if done for seborrheic keratoses, acrochordons or warts) as well as, the method and expected results to include compromise of the skin barrier, bleeding, scarring/white area, redness at site, lesion recurrence, and pain. Patient was consented to the risks and benefits of the procedure and gave informed consent. Lesion(s) with locations as indicated in the physical examination were treated. Lesion(s) were treated with 2 cycles of liquid nitrogen with a thaw time of at least ten seconds. Therapy was applied in a pulsed fashion to minimize collateral tissue injury. Patient was instructed to use Vaseline ointment to the area(s) until healed. Patient tolerated the procedure well and left in stable condition. Pain before and after the procedure were assessed to not be significantly different than baseline. PLAN OF TREATMENT Medication Medication Name Sig Start Date Stop Date Alclometasone Dipropionate 0.05 % 1 application Leather Grader ally Twice a day for up to ONE WEEK ONLY NEEDED for eyebrow rash for 10 days Oct, Treatment Notes Assessment Notes Clinical Notes Seborrheic keratoses Benign Lesion Couns lucy. The patient was extensively counseled regarding the [...] be elective and cosmetic. They expressed understanding. Seborrheic keratoses, inflamed Cryothera py x [TWO ] number of sites. [place] protocol was followed in compliance with [facility] standards. Patient was counseled regarding the indication for treatment (precancerous state for actinic keratosis or cosmetic reasons if done for seborrheic keratoses, acrochordons or warts) as well as, the method and expected results to include compromise of the skin barrier, bleeding, scarring/white area, redness at site, lesion recurrence, and pain. Patient was consented to the risks and benefits of the procedure and gave informed consent. Lesion(s) with locations as indicated in the physical examination were treated. Lesion(s) were treated with 2 cycles of liquid nitrogen with a thaw time of at least ten seconds. Therapy was applied in a pulsed fashion to minimize collateral tissue injury. Patient was instructed to use Vaseline ointment to the area(s) until healed. Patient tolerated the procedure well and left in stable condition. Pain before and after the procedure were assessed to not be significantly different than baseline. Next Appt Details prn Reason: Insurance Providers Payer Name Payer Address Payer Phone Insured Name Patient Relati onship to Insured Coverage Start Date Coverage End Date MEDICARE COMPLETE UNITED HEALTHCARE [address] [address] [facility] [id number] SANJAY KAY
--- OUTSIDE RECORDS SUMMARY | 2020-11-19 13:16 | CCD | Continuity of Care Document ---
Author Author Belia Lane MD Organization Unknown Address [address] [facility] [address] [place] [address] Phone [phone] Care Team Providers Care Training Project Manager Name Role Phone Tay Lane JR, MD AUTM Unavailable Migel Montana M.D. AUTM [phone] Nolan Galvan MD AUTM [phone] Problems Active Problems Provider Date Alopecia Tay Lane MD Onset: 05/05/[address] MD Onset: 05/05 Degeneration of lumbar intervertebral disc Tay carl MD Onset: 05/05/2011 Degeneration of cervical intervertebral disc Tay elkins MD Onset: 05/05/[address] MD Onset: 05/05/2011 Social History Type Date Description Comments Sex Unknown ETOH Use consumes 1-2 glasses of wine per week ETOH Use consumes 1-2 beers per week ETOH Use Consumes liquor once weekly Tobacco Use Start: Unknown Patient has never smoked Allergies, Adverse Reactions, Alerts Active Allergies Reaction Severity Comments Date Penicillen 01/10/2010 Medications Active Medications SIG Qnty Indications Ordering Provide r Date Shingrix 50mcg/0.5ML Suspension Re c administer 0.5 milliliters intramuscular, repeat in 2 to [address] MD 09/07/2019 Belviq 10mg Tablets 1 by mouth twice a day 60tabs Tay Lane MD 09/07/2019 Benzonatate 100mg Capsules 1 by mouth three times a day as needed cough 30caps Tay grant MD 07/16/2018 Loratadine 10mg Tablets on ce daily 30tabs J06.9 Phyl [place], 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 07/25/2015 Amcinonide 0.1% Ointment león y prn 30gm Tay Lane MD 03/16/2012 Multivitamins Tablets 1 po q d Tay Lane MD 03/12/2011 Ocuvite Tablets [address] MD 03/12/2011 Medications Administered in Office Medication SIG Qnty Indications Ordering Provider Date Administration Of Flu Vaccine Inj ection Tay Lane MD 09/05/2016 Immunizations CPT Code Status Date Vaccine Lot # U-Flu Given 07/06/2020 Influenza,Unspecified 14674 Given 06/23/2020 Shingrix Zoster Vaccine (HZV), Recombinant, Subunit, Adjuvanted U-Flu Given 08/02/2019 Influenza,Unspecified 03647 Given 08/31/2018 Pneumovax 23 [id number] U-Flu Given 07/29/2018 Influenza,Unspecified Q2037 Given 09/05/2016 Fluvirin Virus Vaccine [id number] 01 Q2037 Given 09/04/2015 Fluvirin Virus Vaccine [id number] 01 Q2037 Given 08/24/2014 Fluvirin Virus Vaccine 46947 01 05891 Given 10/18/2013 Zoster Vaccine Q2037 Given 08/23/2013 Fluvirin Virus Vaccine Vital Signs Date Vital Result Comment 09/12/2020 2:00pm BP Systolic 126 mmHg BP Diastolic 76 mmHg Heart Rate 72 /min Height 61 inches 5'1" Weight 151.00 lb BMI (Body Mass Index) 28.5 kg/m2 09/07/2019 11:04am BP Systolic 128 mmHg BP Diastolic 80 mmHg Heart Rate 72 /min Height 61 inches 5'1" Weight 149.00 lb BMI (Body Mass Index) 28.2 kg/m2 Results Test Acquired Date Facility Test Result H/L Range Note Laboratory test finding 09/12/2020 [facility] [employer] M[employer] Installer: [place] [address] [phone] Vitamin D 25-Hydroxy <pending> Procedures Date Code Description Status 05/05/2019 [id number] Mammogram Completed 02/11/2018 [id number] Colonoscopy Completed 09/09/2017 [id number] Bone Mineral Density Test Comple catrachita 09/09/2017 [id number] Mammogram Completed 09/05/2015 [id number] Mammogram Completed 07/26/2015 [id number] Mammogram Completed 09/24/2013 [id number] Mammogram Completed 08/11/2012 [id number] Colonoscopy Completed 10/06/2008 [id number] Colonoscopy Completed Medical Devices Description No Information Available Encounters Description No Information Available Assessments Description No Information Available Plan of Treatment 09/07/2019 - Tay Lane MD* Z00.00 Encounter for general adult medical examination without abnormal findings * E78.00 Pure hypercholesterolemia, unspecified * M85.9 Disorder of bone density and structure, unspecified * E66.3 Overweight * Z68.28 Body mass index (BMI) 28.0-28.9, adult * Z13.89 Encounter for screening for other disorder * All * New Medication:* Shingrix 50 mcg/0.5ML - administer 0.5 milliliters intramuscular, repeat in 2 to 6 months * Belviq 10 mg - 1 by mouth twice a day * Comments:* Shingrix discussed and sent. Repeat bone density. Mammogram up to date. We came up with a goal weight loss of 10-12 lb. Stretch goal of 14. Functional Status Description No Information Available Mental Status Description No Information Available Referrals Description No Information Available
--- OUTSIDE RECORDS SUMMARY | 2020-11-19 13:16 | CCD ---
Author Author [facility] Organization [facility] Address Unknown Phone Unavailable Care Team Providers Care Tech Ed/Woodshop Teacher Name Role Phone Jackie Warren Unavailable PROBLEMS Type Condition ICD9-CM Code [id number] Code Onset Dates Condition S tatus SNOMED Code Notes Problem Seborrheic psoriasis L40.8 Active [id number] ALLERGIES Allergen (clinical drug ingredient) Drug/Non Drug Allergy do cumented on EMR Reaction Allergy Type Onset Date Status Penicillin (For Allergies Use Only) Hives Drug Allerg y Active ENCOUNTERS from 1950 to 2020-09-20 Encounter Location Date Provider Diagnosis [facility] Dermatology [address] [place] [address] Sep, Jackie Warren IMMUNIZATIONS No Information SOCIAL HISTORY Sex Assigned [...] Information RESULTS No Results REASON FOR VISIT PA Tacrolimus 0.1% ointment MEDICAL (GENERAL) HISTORY Type Description Date Medical [...] Details Provider Name:Eunice Pineda, 11:00:00 AM, [address] [facility], [address], [place], [address], Insurance Providers Payer Name Payer Address Payer Phone Insured Name Patient Relati onship to Insured Coverage Start Date Coverage End Date MEDICARE COMPLETE UNITED [employer]CARE [address] [address] [facility] [id number] SANJAY KAY self
--- OUTSIDE RECORDS SUMMARY | 2020-11-19 13:16 | CCD | Continuity of Care Document ---
Author Author Belia Lane MD Organization Unknown Address [address] [facility] [address] [place] [address] Phone [phone] Care Team Providers Care Packager Hand Name Role Phone Tay Lane JR, MD AUTM Unavailable Migel Montana M.D. AUTM [phone] Nolan Galvan MD AUTM [phone] Problems Active Problems Provider Date Alopecia Tay [...] [address] MD 09/07/2019 Benzonatate 100mg Capsules 1 by mouth three times a day as needed cough 30caps Tay grant MD 07/16/2018 Loratadine 10mg Tablets on ce daily 30tabs J06.9 CRISTOFER Lopez 07/25/2015 Amcinonide 0.1% Ointment león y prn 30gm Tay Lane MD 03/16/2012 Multivitamins Tablets 1 po q d Tay Lane MD 03/12/2011 Ocuvite Tablets [address] MD 03/12/2011 Medications Administered in Office Medication SIG Qnty Indications Ordering Provider Date Administration Of Flu Vaccine Inj ection Tay Lane MD 09/05/2016 Immunizations CPT Code Status Date Vaccine Lot # [id number] Given 09/16/2020 Shingrix Zoster Vaccine (HZV), Recombinant, Subunit, Adjuvanted U-Flu Given 07/06/2020 Influenza,Unspecified 03138 Given 06/23/2020 Shingrix Zoster Vaccine (HZV), Recombinant, Subunit, Adjuvanted U-Flu Given 08/02/2019 Influenza,Unspecified 58290 Given 08/31/2018 Pneumovax 23 [id number] U-Flu Given 07/29/2018 Influenza,Unspecified Q2037 Given 09/05/2016 Fluvirin Virus Vaccine 95924 01 Q2037 Given 09/04/2015 Fluvirin Virus Vaccine 41275 01 Q2037 Given 08/24/2014 Fluvirin Virus Vaccine 93049 01 62502 Given 10/18/2013 Zoster Vaccine Q2037 Given 08/23/2013 [...] Date Facility Test Result H/L Range Note Complete Blood Count 09/12/2020 [facility] Cnc Technician: [place] [address] [phone] WBC 6.8 x10*3/UL 4.1 - 10.9 RBC 4.85 x10*6/UL 4.20 - 6.30 Hemoglobin 15.0 g/dL 12.0 - 18.0 Hematocrit 41.9 % 37.0 - 51.0 MCV 86.5 fL 80.0 - 97.0 MCH 31.1 pg 26.0 - 32.0 MCHC 35.9 g/dL 31.0 - 38.0 RDW 12.1 % 11.6 - 13.7 PLT 273 x10*3/UL 140 - 440 MPV 7.7 FL Low 7.8 - 11.0 Lymph % 16.8 % 10.0 - 58.5 Mid % 3.7 % 1.7 - 9.3 Neut % 79.5 % 37.0 - 92.0 Lymph # 1.1 x10*3/UL 0.6 - 4.1 Mid # 0.3 x10*3/UL 0.1 - 0.6 Neut # 5.4 x10*3/UL 2.0 - 7.8 Comprehensive Chem Profile 09/12/2020 [facility] Cnc Technician: [place] [address] [phone] Glucose 97 mg/dL 74 - 99 1 BUN 25 mg/dL High 7 - 18 Creatinine 0.9 mg/dL 0.6 - 1.3 Sodium 144 mEq/L 136 - 145 Potassium 4.6 mEq/L 3.5 - 5.1 Chloride 106 mEq/L 98 - 107 Carbon Dioxide 29 mEq/L 21 - 32 Calcium 9.0 mg/dL 8.5 - 10.1 Alk. Phosphatase 60 mg/dL 46 - 116 Total Bilirubin 0.5 mg/dL 0.2 - 1.0 Ast (Sgot) 19 U/L 15 - 37 Alt (SGPT) 23 U/L 12 - 78 Albumin 4.0 g/dL 3.4 - 5.0 Total Protein 6.6 g/dL 6.4 - 8.2 A/G Ratio 1.54 CALC 1.00 - 1.90 GFR >= 60 mL/min >60 GFR >= 60 mL/min >60 2 Lipid Profile 09/12/2020 [facility] , Cnc Technician: [place] [address] [phone] Cholesterol 207 mg/dL High 131 - 200 Triglycerides 71 mg/dL 30 - 150 HDL Cholesterol 74 mg/dL High 35 - 60 LDL (Calculated) 119 CALC 50 - 159 Laboratory test finding 09/12/2020 [facility] Cnc Technician: Dr Tay Lane [place] [id number] [phone] Vitamin D 25-Hydroxy 39.0 24.0 - 80.0 3 1 100-125 mg/dL PRE-DIABET ES/FASTING >126 mg/dL DIABETES/FASTING 2 CHRONIC KIDNEY DISEASE STAGI NG PER NKF STAGE I & II GFR >= 60 NORMAL TO MILDLY DECREASED STAGE III GFR 30-59 MODERATELY DECREASED STAGE IV GFR 15-29 SEVERELY DECREASED STAGE V GFR <15 VERY LITTLE GFR LEFT ESRD GFR <15 ON SUPERVISOR [employer] 3 This test was performed [employer] Vitamin D immunoassay kit. Values obtained with different assay methods should not be used interchangeably. Procedures Date Code Description Status 09/12/2020 [id number] EKG/Interpretation & Report Comp leted 05/05/2019 [id number] Mammogram Completed 02/11/2018 [id number] Colonoscopy Completed 09/09/2017 [id number] Bone Mineral Density Test Comple catrachita 09/09/2017 [id number] Mammogram Completed 09/05/2015 [id number] Mammogram Completed 07/26/2015 [id number] Mammogram Completed 09/24/2013 [id number] Mammogram Completed 08/11/2012 [id number] Colonoscopy Completed 10/06/2008 [id number] Colonoscopy Completed Medical Devices Description No Information Available Encounters Type Date Location Provider Dx Diagnosis Office Visit 09/12/2020 2:00p [facility] Tay Lane MD Z00.00 Encntr for general adult medical exam w/ o abnormal findings E78.00 Pure hypercholesterolemia, u nspecified M85.9 Disorder of bone density and structure, unspecified E03.9 Hypothyroidism, unspecified E66.3 Overweight Z68.28 Body mass index [BMI] 28.0-2 8.9, adult Z13.89 Encounter for screening for other disorder Assessments Date Code Description Provider 09/12/2020 Z00.00 Encounter for genera l adult medical examination without abnormal findings Tay Lane MD 09/12/2020 E78.00 Pure hypercholesterolemia, unspe cified Tay Lane MD 09/12/2020 M85.9 Disorder of bone density and str ucture, unspecified Tay Lane MD 09/12/2020 E03.9 Hypothyroidism, unspecified Cory jose Lane MD 09/12/2020 E66.3 Overweight Tay hayward MD 09/12/2020 Z68.28 Body mass index [BMI] 28.0-28.9, adult Tay Lane MD 09/12/2020 Z13.89 Encounter for screening for othe r disorder Tay Lane MD Plan of Treatment Future Appointment(s):* 09/18/2021 7:50 am - [facility] * 09/18/2021 2:30 pm - Tay Lane [facility] 09/12/2020 - Tay Lane MD* Z00.00 Encounter for general adult medical examination without abnormal findings * E78.00 Pure hypercholesterolemia, unspecified * M85.9 Disorder of bone density and structure, unspecified * E03.9 Hypothyroidism, unspecified * E66.3 Overweight * Z68.28 Body mass index [BMI] 28.0-28.9, adult * Z13.89 Encounter for screening for other disorder * All * Comments:* Mammogram and bone density to be done. Functional Status Description No Information Available Mental Status Description No Information Available Referrals Description No Information Available
--- OUTSIDE RECORDS SUMMARY | 2020-11-19 13:16 | CCD | Continuity of Care Document ---
Author Author Belia Lane MD Organization Unknown Address [address] [facility] [address] [place] [address] Phone [phone] Care Team Providers Care Foster Care Case Manager Name Role Phone Tay Lane JR, MD AUTM Unavailable Migel Montana M.D. AUTM [phone] Nolan Galvan MD AUTM [phone] Problems Active Problems Provider Date Alopecia Tay [...] CPT Code Status Date Vaccine Lot # [id number] Given 09/16/2020 Shingrix Zoster Vaccine (HZV), Recombinant, Subunit, Adjuvanted U-Flu Given 07/06/2020 Influenza,Unspecified 41211 Given 06/23/2020 Shingrix Zoster Vaccine (HZV), Recombinant, Subunit, Adjuvanted U-Flu Given 08/02/2019 Influenza,Unspecified 83488 Given 08/31/2018 Pneumovax 23 [id number] U-Flu Given 07/29/2018 Influenza,Unspecified Q2037 Given 09/05/2016 Fluvirin Virus Vaccine [id number] 01 Q2037 Given 09/04/2015 Fluvirin Virus Vaccine 89772 01 Q2037 Given 08/24/2014 Fluvirin Virus Vaccine 04872 01 38896 Given 10/18/2013 Zoster Vaccine Q2037 Given 08/23/2013 Fluvirin Virus Vaccine Vital Signs Date Vital Result Comment 11/02/2020 9:42am BP Systolic 134 mmHg BP Diastolic 76 mmHg Heart Rate 72 /min Height 61 inches 5'1" Weight 153.00 lb BMI (Body Mass Index) 28.9 kg/m2 09/12/2020 2:00pm BP Systolic 126 mmHg BP Diastolic 76 mmHg Heart Rate 72 /min Height 61 inches 5'1" Weight 151.00 lb BMI (Body Mass Index) 28.5 kg/m2 Results Test Acquired Date Facility Test Result H/L Range Note Complete Blood Count 09/12/2020 [facility] Flight Engineer Instructor: [place] [address] [phone] WBC 6.8 x10*3/UL 4.1 - 10.9 RBC [...] 2.0 - 7.8 Comprehensive Chem Profile 09/12/2020 [facility] Flight Engineer Instructor: [place] [address] [phone] Glucose 97 mg/dL 74 - 99 1 [...] 60 mL/min >60 2 Lipid Profile 09/12/2020 [facility] Flight Engineer Instructor: [place] [address] [phone] Cholesterol 207 mg/dL High 131 - 200 Triglycerides 71 mg/dL 30 - 150 HDL Cholesterol 74 mg/dL High 35 - 60 LDL (Calculated) 119 CALC 50 - 159 Laboratory test finding 09/12/2020 [facility] Flight Engineer Instructor: Dr Tay Lane [place] [id number] [phone] Vitamin D 25-Hydroxy 39.0 24.0 - 80.0 3 1 100-125 mg/dL PRE-DIABET ES/FASTING >126 mg/dL DIABETES/FASTING 2 CHRONIC KIDNEY DISEASE STAGI NG PER NKF STAGE I & II GFR >= 60 NORMAL TO MILDLY DECREASED STAGE III GFR 30-59 MODERATELY DECREASED STAGE IV GFR 15-29 SEVERELY DECREASED STAGE V GFR <15 VERY LITTLE GFR LEFT ESRD GFR <15 ON STOCK ROLLER 3 This test was performed [employer] Vitamin D immunoassay kit. Values obtained with different assay methods should not be used interchangeably. Procedures Date Code Description Status 11/02/2020 [id number] EKG/Interpretation & Report Comp leted 09/12/2020 [id number] EKG/Interpretation & Report Comp leted 05/05/2019 [id number] Mammogram Completed 02/11/2018 [id number] Colonoscopy Completed 09/09/2017 [id number] Bone Mineral Density Test Comple catrachita 09/09/2017 [id number] Mammogram Completed 09/05/2015 [id number] Mammogram Completed 07/26/2015 [id number] Mammogram Completed 09/24/2013 [id number] Mammogram Completed 08/11/2012 [id number] Colonoscopy Completed 10/06/2008 [id number] Colonoscopy Completed Medical Devices Description No Information Available Encounters Type Date Location Provider Dx Diagnosis Office Visit 11/02/2020 9:40a [facility] MD Z01.810 Encounter for preprocedural cardiovascul ar examination M25.541 Pain in joints of right hand E78.00 Pure hypercholesterolemia, u nspecified Office Visit 09/12/2020 2:00p [facility] quiroz MD Z00.00 Encntr for general adult medical exam w/ o abnormal findings E78.00 Pure hypercholesterolemia, u nspecified 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 * 09/18/2021 2:30 pm - Tay Lane MD at [facility] 11/02/2020 - Tay Lane MD* Z01.810 Encounter for preprocedural cardiovascular examination * M25.541 Pain in joints of right hand * E78.00 Pure hypercholesterolemia, unspecified Functional Status Description No Information Available Mental Status Description No Information Available Referrals Description No Information Available
--- OUTSIDE RECORDS SUMMARY | 2020-11-19 13:16 | CCD | Continuity of Care Document ---
Author Author Lab Schedule, [facility] Organization Unknown Address [address] [address] Phone Unavailable Care Team Providers Care Distribution System Operator Name Role Phone Tay Lane JR, MD AUTM Unavailable Migel Montana M.D. AUTM [phone] Nolan Galvan MD AUTM [phone] Problems Active Problems Provider Date Alopecia Tay [...] Vaccine Lot # U-Flu Given 07/06/2020 Influenza,Unspecified [id number] Given 06/23/2020 Shingrix Zoster Vaccine (HZV), Recombinant, Subunit, Adjuvanted U-Flu Given 08/02/2019 Influenza,Unspecified 56650 Given 08/31/2018 Pneumovax 23 [id number] U-Flu Given 07/29/2018 Influenza,Unspecified Q2037 Given 09/05/2016 Fluvirin Virus Vaccine 27115 01 Q2037 Given 09/04/2015 Fluvirin Virus Vaccine 72071 01 Q2037 Given 08/24/2014 Fluvirin Virus Vaccine 17298 01 70953 Given 10/18/2013 Zoster Vaccine Q2037 Given 08/23/2013 Fluvirin Virus Vaccine Vital Signs Date Vital Result Comment 09/07/2019 11:04am BP Systolic 128 mmHg BP Diastolic 80 mmHg Heart Rate 72 /min Height 61 inches 5'1" Weight 149.00 lb BMI (Body Mass Index) 28.2 kg/m2 08/31/2018 11:22am BP Systolic 126 mmHg BP Diastolic 78 mmHg Heart Rate 80 /min Height 61 inches 5'1" Weight 144.00 lb O2 % BldC Oximetry 99 % BMI (Body Mass Index) 27.2 kg/m2 Results Description No Information Available Procedures Date Code Description Status 05/05/2019 [id number] Mammogram Completed 02/11/2018 [id number] Colonoscopy Completed 09/09/2017 [id number] Bone Mineral Density Test Comple catrachita 09/09/2017 [id number] Mammogram Completed 09/05/2015 [id number] Mammogram Completed 07/26/2015 [id number] Mammogram Completed 09/24/2013 [id number] Mammogram Completed 08/11/2012 [id number] Colonoscopy Completed 10/06/2008 [id number] Colonoscopy Completed Medical Devices Description No Information [...]
[2020-11-19] MEDS ORDERED: DIPH50CA PO ×2 (13:51)
--- OUTSIDE RECORDS SUMMARY | 2020-11-19 13:54 | CCD ---
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 Role Phone Fred Lane MD Unavailable [...] MD Unavailable Unavailable ArianaFred MD Unavailable Unavailable BrittFred MD Unavailable Unavailable BrittFred MD Unavailable Unavailable ArianaFred MD Unavailable Unavailable ArianaFred MD Unavailable Unavailable BrittFred MD Unavailable Unavailable BrittFred MD Unavailable Unavailable ArianaFred MD Unavailable Unavailable ArianaFred MD Unavailable Unavailable ArianaFred MD Unavailable Unavailable BrittFred MD Unavailable Unavailable BrittFred MD Unavailable Unavailable ArianaFred MD Unavailable Unavailable BrittFred MD Unavailable Unavailable ArianaFred MD Unavailable Unavailable BrittFred MD Unavailable Unavailable ArianaFred MD Unavailable Unavailable BrittFred MD Unavailable Unavailable ArianaFred MD Unavailable Unavailable ArianaFred MD Unavailable Unavailable ArianaFred MD Unavailable Unavailable BrittFred MD Unavailable Unavailable ArianaFred MD Unavailable Unavailable ArianaFred MD Unavailable Unavailable BrittFred MD Unavailable Unavailable ArianaFred MD Unavailable Unavailable ArianaFred MD Unavailable Unavailable ArianaFred MD Unavailable Unavailable BrittFred MD Unavailable Unavailable BrittFred MD Unavailable Unavailable BrittFred MD Unavailable Unavailable ArianaFred MD Unavailable Unavailable ArianaFred MD Unavailable Unavailable BrittFred MD Unavailable Unavailable ArianaFred carl MD Unavailable Unavailable BrittFred carl MD Unavailable Unavailable BrittFred carl MD Unavailable Unavailable ArianaFred carl MD Unavailable Unavailable ArianaFred carl MD Unavailable Unavailable BrittFred MD Unavailable Unavailable ArianaFred MD Unavailable Unavailable BrittFred carl MD Unavailable Unavailable ArianaFred carl MD Unavailable Unavailable BrittFred carl MD Unavailable Unavailable BrittFred MD Unavailable Unavailable BrittFred MD Unavailable Unavailable ArianaFred MD Unavailable Unavailable BrittFred MD Unavailable Unavailable ArianaFred MD Unavailable Unavailable BrittFred MD Unavailable Unavailable BrittFred carl MD Unavailable Unavailable ArianaFred MD Unavailable Unavailable BrittFred MD Unavailable Unavailable BrittFred MD Unavailable Unavailable Chalry Ruvalcaba MD Unavailable Unavailable Vaneenenaam, Charly Healy MD Unavailable Unavailable Vaneenenaam, Charly Healy MD Unavailable Unavailable Vaneenenaam, Cahrly Healy MD Unavailable Unavailable Vaneenenaam, Charly Healy [...] is protected by Article 27-F of the [facility] Public Health law. If you continue you may have access to information: Regarding HIV / AIDS; Provided by facilities licensed or operated by the [facility] Office of Mental Health; or Provided by the [facility] Office for People With Developmental Disabilities. If such information is present, then the following [facility] mandated warning applies: This information has been [...] law may result in a fine or prison sentence or both. A general authorization for the release of medical or other information is NOT sufficient authorization for further disc losure. Family History Family Member Name Family Member Gender Family Member Status Date o f Status Description Data Source(s) Unknown Male Problem MEDENT ([facility]) Unknown Male Problem MEDENT ([facility]) Unknown Female Problem MEDENT ([facility]) Encounters Encounter Providers Location Date Indications Data Source(s ) Office Visit Attender: Tay Feng 0 11/02/2020 08:40:00 AM EST MEDENT ([facility] ) Office Visit Attender: Charly Ruvalcaba MD Physical Therap y 10/19/2020 09:30:00 AM EST MED[facility] ([facility]) Outpatient [address] [facility] [place] [address] 10/16/2020 12:00:00 AM EST eCW1 ([facility]) Unknown [address] [facility] [address] [place] [address] 10/04/2020 12:00:00 AM EST eCW1 ([facility]) Unknown [address] [facility] [address] [place] [address] 09/20/2020 12:00:00 AM EST eCW1 ([facility]) Unknown [address] [facility] [place] [place] [address] 09/19/2020 12:00:00 AM EST eCW1 ([facility]) Outpatient [address] [facility] [place] [place] [address] 09/18/2020 12:00:00 AM EST eCW1 ([facility]) Outpatient Attender: Tay Feng 1 11/13/2019 01:00:00 PM EST MEDENT ([facility] ) Immunizations Vaccine Date Status Description Data Source(s) COVID-19 VACCINE, MRNA-1273, LNP-S (MODERNA)/PF 11/10/2020 1 2:00:00 AM EST completed [facility] Shingrix Zoster Vaccine (HZV), Recombinant, Subunit, A djuvanted 09/16/2020 07:38:00 AM EST completed [facility]) VARICELLA-ZOSTER VIRUS GLYCOPROTEIN E,REC/AS01B ADJUVA NT/PF 09/16/2020 12:00:00 AM EST completed [facility] This CVX code allows reporting of a vacc ination when formulation is unknown (for example, when recording a Influenza vaccination when noted on a vaccination card) 07/06/2020 10:18:00 AM EDT completed MEDEN T ([facility]) INFLUENZA VACCINE QUADRIVALENT 2019- (65 YR UP)/MF59 C.1/PF 07/06/2020 12:00:00 AM EDT completed [facility] Shingrix Zoster Vaccine (HZV), Recombinant, Subunit, A djuvanted 06/23/2020 03:58:00 PM EDT completed [facility] ([facility]) VARICELLA-ZOSTER VIRUS GLYCOPROTEIN E,REC/AS01B ADJUVA NT/PF 06/23/2020 12:00:00 AM EDT completed [facility] Medications Medication Brand Name Start Date Product Form Dose Route Admi nistrative Instructions Pharmacy Instructions Status Indications Reaction Description Data Source(s) Acetaminophen 300 MG / Codeine Phosphate 30 MG Oral Tablet [Tylenol with Codeine] Tylenol With Codeine #3 11/15/2020 12:00:00 AM EST active [facility] ([facility]) 300-30 mg 11/14/2020 12:00:00 AM EST tablet 30 TAKE ONE TO TWO TABLETS BY MOUTH EVERY 4 TO 6 HOURS NEEDED FOR PAIN AFTER SURGERY MAXIMUM DAILY DOSE = 8 TABLETS TAKE ONE TO TWO TABLETS BY MOUTH EVERY 4 TO 6 HOURS NEEDED FOR PAIN AFTER SURGERY MAXIMUM DAILY DOSE = 8 TABLETS SOLD: 11/15/2020 [facility] No Active Medications 10/19/2020 12:00:00 AM EST completed [facility] ([facility]) 0.05 % 10/17/2020 12:00:00 AM EST ointment 15 APPLY TWICE A DAY FOR UP TO 1 WEEK ONLY NEEDED FOR EYEBROW RASH APPLY TWICE A DAY FOR UP TO 1 WEEK ONLY NEEDED FOR EYEBROW RASH SOLD: 10/17/2020 [facility] alclometasone dipropionate 0.0005 MG/MG Topical Ointment Alclometasone Dipropionate 0.05 % Alclometasone Dipropionate 0.05 % 10/16/2020 12:00:00 AM EST 1.0 {application} active Alclom etasone Dipropionate 0.05 % eCW1 ([facility]) 0.1 % 09/21/2020 12:00:00 AM EST ointment 30 APPLY 1 APPLICATION TWICE A DAY TO EYELID RASH INSTRUCTED APPLY 1 APPLICATION TWICE A DAY TO EYELI D RASH INSTRUCTED SOLD: 09/21/2020 [facility] Tacrolimus 0.001 MG/MG Topical Ointment Tacrolimus 0.1 % Tac rolimus 0.1 % 09/18/2020 12:00:00 AM EST 1.0 {application} act greta Tacrolimus 0.1 % eCW1 ([facility]) Tacrolimus 0.001 MG/MG Topical Ointment Tacrolimus 0.1 % Tac rolimus 0.1 % 09/18/2020 12:00:00 AM EST 1.0 {application} act greta Tacrolimus 0.1 % eCW1 ([facility]) Tacrolimus 0.001 MG/MG Topical Ointment Tacrolimus 0.1 % Tac rolimus 0.1 % 09/18/2020 12:00:00 AM EST 1.0 {application} act greta Tacrolimus 0.1 % eCW1 ([facility]) Tacrolimus 0.001 MG/MG Topical Ointment Tacrolimus 0.1 % Tac rolimus 0.1 % 09/18/2020 12:00:00 AM EST 1.0 {application} act greta Tacrolimus 0.1 % eCW1 ([facility]) 10 mg 09/09/2019 12:00:00 AM EST tablet 60 TAKE ONE TABLET BY MOUTH TWICE A DAY MAXIMUM DAILY DOSE = 2 TABLETS TAKE ONE TABLET BY MOUTH TWICE A DAY MAX IMUM DAILY DOSE = 2 TABLETS SOLD: 10/08/2019 [facility] Insurance Providers Payer name Policy type / Coverage type Policy ID Covered republican ID Covered republican's relationship to [place] Policy [place] Plan Information MEDICARE COMPLETE [id number] SP [id number] [place] PPO 302/307 [id number] SP [id number] MEDICARE COMPLETE [id number] SP [id number] [facility] [id number] SP [id number] BS Odem Trad/MX Medigap Part B [id number] Self [id number] [employer] Commercial [id number] Self [id number] BS Odem Trad/MX Medigap Part B [id number] Self [id number] BS Odem Trad/MX Medigap Part B [id number] Self [id number] BS Odem Trad/MX Medigap Part B [id number] Family Depe ndent [id number] BS Odem Trad/MX Medigap Part B [id number] Self [id number] BS [facility] Medigap Part B [id number] Self [id number] [employer] Commercial [id number] Self [id number] BS Odem Trad/MX Medigap Part B [id number] Self [id number] RavalliTomveyi Bid[employer] Commercial [id number] Self [id number] [facility]/Medicare Commercial [id number] Self [id number] BS Odem Trad/MX Commercial [id number] Self [id number] MEDICARE COMPLETE-[facility] O [id number] S [id number] [facility] [id number] S [id number] BS Odem Trad/MX Commercial [id number] Self [id number] [facility] Medicare Kimberlee Commercial [id number] Self [id number] [facility] MEDICARE COMPLETE G [id number] Self [id number] [facility] MEDICARE -O/P [id number] 18 [id number] [facility] Medicare Kimberlee Commercial [id number] Self [id number] BS Odem Trad/MX Commercial 802 Self 802 BS Odem Trad/MX Commercial 802 Self 802 BS Odem Trad/MX Commercial 802 Self 802 BS Odem Trad/MX Commercial 802 Family Dependent 802 BS Odem Trad/MX Commercial 802 Self 802 [facility] Medicare Complete F [id number] SELF [id number] Medicare Complete [facility] F [id number] SELF [id number] [employer] BCBS B [id number] S [id number] [place] PPO 302/307 [id number] SP [id number] [place]BS [place] PPO 302/307 [id number] SP [id number] EXCELLUS BCBS P [id number] S VYS [id number] BCBS [employer] DANG DIV [id number] SP [id number] BC/BS OF [place] P [id number] S [id number] [id number] [employer] CN[employer] 1 [id number] [id number] SELF PAY 5 UNAVAILABLE 1 UNAVAILA BLE [id number] Problems, Conditions, and Diagnoses Code Display Name Description Problem Type Effective Dates Data Source(s) L40.8 [id number] Seborrheic psoriasis Problem 09/18/2020 12:0 0:00 AM EST eCW1 ([facility]) Surgeries/Procedures Procedure Description Date Indications Data Source(s) Transplant Tendon Forearm/Wrist 11/15/2020 12:00:00 AM EST [facility] ([facility]) Arthroplasty Interposition IC/CM JTS 11/15/2020 12:00: 00 AM EST [facility] ([facility] ECG ROUTINE ECG W/LEAST 12 LDS W/I&R 11/02/2020 12:00: 00 AM EST [facility] ([facility]) RADEX FINGR MINIMUM 2 VIEWS 10/19/2020 12:00:00 AM EST [facility] ([facility]) ECG ROUTINE ECG W/LEAST 12 LDS W/I&R 09/12/2020 12:00: 00 AM EST [facility] ([facility]) Results ID Date Data Source [id number] 10/31/2020 02:32:00 PM EST [facility] ([facility]) Name Value Range Interpretation Code Description Data Paloma rce(s) Supporting Document(s) Covid Rapid Testing Laboratory test result [facility] ([facility]) ID Date Data Source [id number] 10/31/2020 12:00:00 AM EST [facility] Name Value Range Interpretation Code Description Data Paloma rce(s) Supporting Document(s) Covid Rapid Testing Negative [facility] This lab was ordered by [facility] and re ported by [facility]. ID Date Data Source [id number] 09/12/2020 08:55:00 AM EST MED[facility] ([facility]) Name Value Range Interpretation Code Description Data Paloma rce(s) Supporting Document(s) Calcidiol [Mass/volume] in Serum or Plasma 39.0 24.0-80.0 MED[facility] ([facility]) This test was performed using FastPack I P Vitamin D immunoassay kit. Values obtained with different assay methods should not be used interchangeably. ID Date Data Source [id number] 09/12/2020 08:55:00 AM EST MED[facility] ([facility]) Name Value Range Interpretation Code Description Data Paloma rce(s) Supporting Document(s) Cholesterol in HDL [Mass/volume] in Serum or Plasma 74 mg/dL 35-60 [facility] ([facility]) Triglyceride [Mass/volume] in Serum or Plasma 71 mg/dL 30-150 [facility] ([facility]) Cholesterol [Mass/volume] in Serum or Plasma 207 mg/dL 131-200 [facility] ([facility]) Cholesterol in LDL [Mass/volume] in Serum or Plasma by calcu lation 119 CALC 50-159 [facility] ([facility]) ID Date Data Source [id number] 09/12/2020 08:55:00 AM EST [facility] ([facility]) Name Value Range Interpretation Code Description Data Paloma rce(s) Supporting Document(s) Glucose [Mass/volume] in Serum or Plasma 97 mg/dL 74-99 [facility] ([facility]) 100-125 mg/dL PRE-DIABETES/FASTING >126 mg/dL DIABETES/FASTING Creatinine 0.9 mg/dL 0.6-1.3 [facility] ([facility] Urea nitrogen [Mass/volume] in Serum or Plasma 25 mg/dL 7-18 [facility] ([facility]) Potassium [Moles/volume] in Serum or Plasma 4.6 meq/L 3.5-5.1 [facility] ([facility]) Sodium [Moles/volume] in Serum or Plasma 144 meq/L 136-145 [facility] ([facility]) Chloride [Moles/volume] in Serum or Plasma 106 meq/L 98-107 [facility] ([facility]) Calcium [Mass/volume] in Serum or Plasma 9.0 mg/dL 8.5-10.1 [facility] ([facility]) Carbon dioxide, total [Moles/volume] in Serum or Plasma 29 meq/L 21 -32 [facility] ([facility]) Alkaline phosphatase isoenzyme [Units/volume] in Serum or Pl asma 60 mg/dL 46-116 [facility] ([facility]) Total Bilirubin 0.5 mg/dL 0.2-1.0 [facility] ([facility]) Alanine aminotransferase [Enzymatic activity/volume] in Seru m or Plasma 23 U/L 12-78 [facility] ([facility]) Aspartate aminotransferase [Enzymatic activity/volume] in Serum or Plasma 19 U/L 15-37 [facility] ([facility] ) Albumin [Mass/volume] in Serum or Plasma 4.0 g/dL 3.4-5.0 [facility] ([facility]) A/G Ratio 1.54 CALC 1.00-1.90 [facility] ([facility]) Proteinase 3 Ab [Units/volume] in Serum 6.6 g/dL 6.4-8.2 [facility] ([facility]) Glomerular filtration rate/1.73 sq M pre dicted among non-blacks [Volume Rate/Area] in Serum or Plasma by Creatinine-based formula (MDRD) Laboratory test result [facility] Glomerular filtration rate/1.73 sq M pre dicted among blacks [Volume Rate/Area] in Serum or Plasma by Creatinine-based formula (MDRD) Laboratory test result [facility]) <content>CHRONIC KIDNEY DISEASE STAGING PER NKF</content>
<content></content>
<content>STAGE I & II GFR >= 60 NORMAL TO MILDLY DECREASED</content>
<content>STAGE III GFR 30-59 MODERATELY DECREASED</content>
<content>STAGE IV GFR 15-29 SEVERELY DECREASED</content>
<content>STAGE V GFR <15 VERY LITTLE GFR LEFT</content>
<content>ESRD GFR <15 ON EXCELLENCE LEADER</content>
<content></content> ID Date Data Source [id number] 09/12/2020 08:55:00 AM EST [facility] Name Value Range Interpretation Code Description Data Paloma rce(s) Supporting Document(s) Leukocytes [#/volume] in Blood by Automated count 6.8 x10*3/UL 4.1-10 .9 [facility] ([facility]) Erythrocytes [#/volume] in Blood by Automated count 4.85 x10*6/UL 4.2 0-6.30 [facility] Hemoglobin [Mass/volume] in Blood 15.0 g/dL 12.0-18.0 [facility] ([facility]) MCH 31.1 pg 26.0-32.0 [facility] MCV 86.5 fL 80.0-97.0 [facility] Hematocrit [Volume Fraction] of Blood by Automated count 41.9 % 3 7.0-51.0 [facility] Platelets [#/volume] in Blood by Automated count 273 x10*3/UL 140-440 [facility] ([facility] Erythrocyte distribution width [Ratio] by Automated count 12.1 % 11.6-13.7 [facility] ([facility] MCHC 35.9 g/dL 31.0-38.0 [facility]) MPV 7.7 FL 7.8-11.0 [facility]) Lymph % 16.8 % 10.0-58.5 [facility]) Neut % 79.5 % 37.0-92.0 [facility]) Mid % 3.7 % 1.7-9.3 [facility]) Lymph # 1.1 x10*3/UL 0.6-4.1 [facility] ([facility]) Neut # 5.4 x10*3/UL 2.0-7.8 [facility] ([facility]) Mid # 0.3 x10*3/UL 0.1-0.6 [facility] ([facility]) Procedure Vital Signs ID Date Data Source UNK Name Value Range Interpretation Code Description Data Source(s) Body mass index (BMI) [Ratio] 28.9 kg/m2 28.9 k g/m2 [facility] ([facility]) Body weight 153.00 [lb_av] 153.00 [lb_av] MEDEN T ([facility]) Body height 61 [in_i] 61 [in_i] [facility] ([facility]) 5'1" Heart rate 72 /min 72 /min [facility] ([facility]) Diastolic blood pressure 76 mm[Hg] 76 mm[Hg] [facility] ([facility]) Systolic blood pressure 134 mm[Hg] 134 mm[Hg] M EDENT ([facility]) Body mass index (BMI) [Ratio] 28.9 kg/m2 28.9 k g/m2 [facility] ([facility] Body weight 148.00 [lb_av] 148.00 [lb_av] MEDEN T ([facility]) Body height 60 [in_i] 60 [in_i] [facility] ([facility] 5'0" Body temperature 96.4 [degF] 96.4 [degF] [facility] ([facility] Diastolic blood pressure 86 mm[Hg] 86 mm[Hg] eCW1 ([facility]) Systolic blood pressure 126 mm[Hg] 126 mm[Hg] e CW1 ([facility]) Body mass index (BMI) [Ratio] 28.91 kg/m2 28.91 kg/m2 eCW1 ([facility]) Body height 61 [in_i] 61 [in_i] eCW1 ([facility]) Body weight 153 [lb_av] 153 [lb_av] eCW1 ([facility]) Diastolic blood pressure 86 mm[Hg] 86 mm[Hg] eCW1 ([facility]) Systolic blood pressure 132 mm[Hg] 132 mm[Hg] e CW1 ([facility]) Body mass index (BMI) [Ratio] 28.34 kg/m2 28.34 kg/m2 W1 ([facility]) Body height 61 [in_i] 61 [in_i] eCW1 ([facility]) Body weight 150 [lb_av] 150 [lb_av] eCW1 ([facility]) Body mass index (BMI) [Ratio] 28.5 kg/m2 28.5 k g/m2 MED[facility] ([facility]) Body weight 151.00 [lb_av] 151.00 [lb_av] MEDEN T ([facility]) Body height 61 [in_i] 61 [in_i] MED[facility] ([facility]) 5'1" Heart rate 72 /min 72 /min MED[facility] ([facility]) Diastolic blood pressure 76 mm[Hg] 76 mm[Hg] MED[facility] ([facility]) Systolic blood pressure 126 mm[Hg] 126 mm[Hg] M EDENT ([facility]) Patient Treatment Plan of Care Planned Activity Planned Date Details Description Data Source (s) alclometasone dipropionate 0.0005 MG/MG Topical Ointme nt 10/16/2020 12:00:00 AM EST eCW1 ([facility]) Tacrolimus 0.001 MG/MG Topical Ointment 09/18/2020 12:00:00 AM EST eCW1 ([facility]) Tacrolimus 0.001 MG/MG Topical Ointment 09/18/2020 12:00:00 AM EST eCW1 ([facility]) Tacrolimus 0.001 MG/MG Topical Ointment 09/18/2020 12:00:00 AM EST eCW1 ([facility]) Tacrolimus 0.001 MG/MG Topical Ointment 09/18/2020 12:00:00 AM EST eCW1 ([facility])
[2020-11-19] MEDS ORDERED: diphenhydrAMINE 50MG CAP PO ONE (15:00)
[2020-11-19] MEDS: methylPREDNISolone 125MG 2ML VIAL IV ONE ×2 (15:16→15:20)
[2020-11-19] MEDS ORDERED: PRED20TA PO ×2 (15:27→15:30)
[2020-11-19 15:45] VITALS: BP 164/82
== END 2020-11-19 15:46 | disposition home or self-care (01) ==
LOC: M ED 13:07
DX: R21 Rash and other nonspecific skin eruption (principal); T78.40XA Allergy, unspecified, initial encounter; Y92.9 Unspecified place or not applicable; Y93.9 Activity, unspecified; Z96.691 Finger-joint replacement of right hand; Z88.0 Allergy status to penicillin

== ENCOUNTER → 2021-08-02 | Outpatient (REF) | payer MEDICARE ==
[~2021-08-02] MED LIST changes: +DIPH50CA PO; +PRED20TA PO
== END ==
LOC: M LAB REF 14:56
PROVIDERS: ATTEND Orthopaedic Surgery
DX: D36.7 Benign neoplasm of other specified sites (principal)

== ENCOUNTER → 2022-05-08 | Outpatient (CLI) | payer MEDICARE | LOC: M RAD 12:10 | PROVIDERS: ATTEND Internal Medicine | DX: E04.2 Nontoxic multinodular goiter (principal) ==

== ENCOUNTER 2022-06-17 18:26 | Emergency (ER) | payer MEDICARE ==
[~2022-06-17] VITALS: Ht 154.9 cm; Wt 64.5 kg
[2022-06-17] MEDS ORDERED: LOSA50TA28 (18:41)
[2022-06-17] MEDS ORDERED: ASPIRIN 81 MG CHEW TABLET PO ONE (19:40)
[2022-06-17 19:55] LABS: BASO % 0.5 % (0.0-1.0); EOS # 0.1 10^3/uL (0.0-0.5); HEMATOCRIT 45.1 % (36.0-47.0); HEMOGLOBIN 15.1 g/dl (12.0-15.5); LYMPH # 1.6 10^3/uL (1.5-5.0); LYMPH % 24.6 % (24.0-44.0); MEAN CORPUSCULAR HEMOGLOBIN 31.1 pg (27.0-33.0); MEAN CORPUSCULAR HGB CONC 33.5 g/dl (32.0-36.5); MONO # 0.5 10^3/uL (0.0-0.8); MONO % 8.1 % (2.0-8.0); NEUTROPHILS # 4.2 10^3/uL (1.5-8.5); NEUTROPHILS % 64.5 % (36.0-66.0); PLATELET COUNT, AUTOMATED 250 10^3/uL (150-450); RED BLOOD COUNT 4.85 10^6/uL (4.00-5.40); WHITE BLOOD COUNT 6.6 10^3/uL (4.0-10.0)
[2022-06-17 20:16] LABS: INR 0.97; PROTHROMBIN TIME 13.3 SECONDS (12.7-14.5)
[2022-06-17 21:07] LABS: CK-MB VALUE MASS 1.7 NG/ML (<3.6); MB/CK RELATIVE INDEX 1.79 (< OR =4)
[2022-06-17 21:15] LABS: ALT/SGPT 23 U/L (12-78); BILIRUBIN,DIRECT 0.1 MG/DL (0.0-0.2); BILIRUBIN,TOTAL 0.5 MG/DL (0.2-1.0); BLOOD UREA NITROGEN 15 MG/DL (7-18); CALCIUM LEVEL 9.5 MG/DL (8.8-10.2); CARBON DIOXIDE LEVEL 29 MEQ/L (21-32); CHLORIDE LEVEL 109 MEQ/L (98-107); CREATININE FOR GFR 0.79 MG/DL (0.55-1.30); FREE T4 1.04 NG/DL (0.76-1.46); GLOMERULAR FILTRATION RATE > 60.0 (>39); GLUCOSE, FASTING 84 MG/DL (70-100); LIPASE 147 U/L (73-393); NT-PRO BNP 114 PG/ML (<125); POTASSIUM SERUM 4.1 MEQ/L (3.5-5.1); SODIUM LEVEL 143 MEQ/L (136-145); TOTAL PROTEIN 6.7 GM/DL (6.4-8.2)
[2022-06-17 22:12] LABS: CK-MB VALUE MASS 2.2 NG/ML (<3.6); MB/CK RELATIVE INDEX 2.34 (< OR =4)
[2022-06-17 23:05] VITALS: BP 154/88
[2022-06-17] MEDS ORDERED: LOSARTAN 50MG TABLET PO ONE (23:05)
[2022-06-18 00:01] VITALS: BP 154/88
== END 2022-06-18 00:18 | disposition home or self-care (01) ==
LOC: M ED 18:26
DX: R07.9 Chest pain, unspecified (principal); G47.30 Sleep apnea, unspecified; I10 Essential (primary) hypertension; Z88.0 Allergy status to penicillin

== ENCOUNTER 2023-04-14 09:13 | Emergency (ER) | payer MEDICARE ==
[~2023-04-14] VITALS: Ht 154.9 cm; Wt 56.4 kg
[~2023-04-14 09:13] MED LIST changes: +LOSA50TA28
[2023-04-14 11:26] VITALS: BP 137/79; TEMP 97.6; O2SAT 98
== END 2023-04-14 11:27 | disposition home or self-care (01) ==
LOC: M ED 09:13
DX: R22.41 Localized swelling, mass and lump, right lower limb (principal); M62.831 Muscle spasm of calf; I10 Essential (primary) hypertension; Z88.0 Allergy status to penicillin; Z79.899 Other long term (current) drug therapy

== ENCOUNTER → 2023-08-09 | Outpatient (REF) | payer MEDICARE | LOC: M LAB REF 18:31 | PROVIDERS: ATTEND Physician Assistant Medical | DX: R05.9 Cough, unspecified (principal) ==

== ENCOUNTER → 2023-09-22 | Outpatient (REF) | payer MEDICARE | LOC: M LAB REF 16:36 | PROVIDERS: ATTEND Internal Medicine | DX: M25.541 Pain in joints of right hand (principal) ==

== ENCOUNTER → 2024-01-26 | Outpatient (REF) | payer MEDICARE | LOC: M LAB REF 12:38 | PROVIDERS: ATTEND Internal Medicine | DX: M25.541 Pain in joints of right hand (principal) ==

== ENCOUNTER 2024-08-11 10:39 | Day surgery (SDC) | payer MEDICARE ==
[~2024-08-11] VITALS: Ht 154.9 cm; Wt 54.4 kg
[~2024-08-11 10:39] MED LIST changes: +ALEV220T22 PO; -LOSA50TA28; +LOSA50TA28 PO; +NS 250 ML IV ONE; +THERTAB52 PO
[2024-08-11] MEDS ORDERED: propofoL 200 MG/20 ML VIAL As Ordered ONE (11:16)
[2024-08-11 12:27] VITALS: TEMP 98.6
[2024-08-11 12:43] VITALS: BP 124/62; O2SAT 97
== END 2024-08-11 12:47 | disposition home or self-care (01) ==
LOC: M OPP 10:39
PROVIDERS: ATTEND Internal Medicine Gastroenterology
DX: Z12.11 Encounter for screening for malignant neoplasm of colon (principal); Z86.0100 Personal history of colon polyps, unspecified; K64.0 First degree hemorrhoids; K57.30 Diverticulosis of large intestine without perforation or abscess without bleeding; I10 Essential (primary) hypertension; M19.90 Unspecified osteoarthritis, unspecified site; Z88.0 Allergy status to penicillin; Z88.5 Allergy status to narcotic agent; Z79.899 Other long term (current) drug therapy

== ENCOUNTER → 2025-10-02 | Outpatient (REF) | payer MEDICARE, OTHER ==
[~2025-10-02] MED LIST changes: -DIPH50CA PO; +DIPH50CA31 PO; -NS 250 ML IV ONE
== END ==
LOC: M LAB REF 16:08
PROVIDERS: ATTEND Physician Assistant Medical
DX: B34.9 Viral infection, unspecified (principal); J02.9 Acute pharyngitis, unspecified